=== PATIENT | male | born 1955 | race Caucasian/White ===

== ENCOUNTER 2016-06-09 07:29 | Emergency (ER) | payer SELFPAY ==
[~2016-06-09] VITALS: Ht 175.3 cm; Wt 113.6 kg
[2016-06-09 07:34] VITALS: TEMP 98
[2016-06-09 08:01] LABS: BASO % 0.3 % (0.0-2.0); EOS # 0.3 (0.0-0.7); EOS % 2.3 % (0-4.0); GRAN # 11.2 (1.4-6.5); GRAN % 77.8 % (42.2-75.2); HEMATOCRIT 48.8 % (42.0-52.0); HEMOGLOBIN 16.6 g/dl (13.5-18.0); LYMPH # 1.7 (1.2-3.4); LYMPH % 11.5 % (20.0-51.0); MEAN CELL VOLUME 94 fl (80.0-100.0); MEAN CORPUSCULAR HEMOGLOBIN 32 pg (27.0-31.0); MEAN CORPUSCULAR HGB CONC 34 g/dl (33.0-37.0); MEAN PLATELET VOLUME 9.1 fl (7.4-10.4); MONO # 1.1 (0.1-0.6); MONO % 7.8 % (1.7-9.3); PLATELET COUNT 282 K/mm3 (130-400); RED BLOOD COUNT 5.22 M/mm3 (4.20-5.60); REDCELL DISTRIBUTION WIDTH-CV 12.6 % (11.5-14.5); WHITE BLOOD COUNT 14.4 K/mm3 (4.8-10.8)
[2016-06-09 08:12] LABS: INR 0.9 (0.8-3.0); PROTHROMBIN TIME 10.3 SECONDS (9.7-12.8)
[2016-06-09 08:14] LABS: PARTIAL THROMBOPLASTIN TIME 33.4 SECONDS (26.0-37.0)
[2016-06-09 08:22] LABS: ADJUSTED CALCIUM 9.4 mg/dL (8.4-10.2); ALANINE AMINOTRANSFERASE 46 U/L (21-72); ALBUMIN 4.5 gm/dL (3.5-5.0); ALKALINE PHOSPHATASE 106 U/L (50-136); ANION GAP 13 mmol/L (7-16); BILIRUBIN,TOTAL 1.1 mg/dL (0.0-1.0); BLOOD UREA NITROGEN 16 mg/dL (9-20); CALCIUM 9.8 mg/dL (8.4-10.2); CARBON DIOXIDE 25 mmol/L (22-30); CHLORIDE 99 mmol/L (98-107); CREATININE, serum 0.99 mg/dL (0.66-1.25); GLUCOSE 252 mg/dL (74-106); POTASSIUM 4.9 mmol/L (3.4-5.0); SODIUM 136 mmol/L (137-145); TOTAL PROTEIN 7.5 gm/dL (6.4-8.2)
[2016-06-09 08:39] LABS: TROPONIN-I < 0.012 ng/mL (0.000-0.034)
[2016-06-09 09:45] LABS: B-TYPE NATRIURETIC PEPTIDE 20 pg/mL (0-125)
[2016-06-09 10:30] VITALS: BP 120/81; PULSE 92
[2016-06-09] MEDS ORDERED: TOPROL XL 25MG25 MG PO (10:56)
[2016-06-10] MEDS ORDERED: ALBUTEROL0.83 MG/ML IH (23:43)
[2016-12-08] MEDS ORDERED: ZITHROMAX Z PA250 MG PO (00:17)
[2016-12-08] MEDS ORDERED: FLEXERIL 1010 MG/TAB PO (00:17)
[2016-12-24] MEDS ORDERED: MULTI VITAMINS1 TAB PO (11:13)
[2016-12-25] MEDS ORDERED: COUMADIN 5MG5 MG/TAB PO (11:32)
== END 2016-06-09 10:58 | disposition left against medical advice (07) ==
LOC: COL.ER 07:29 → MEDICAL 09:20
PROVIDERS: Emergency Medicine
DX: R07.9 Chest pain, unspecified (principal); R55 Syncope and collapse; S22.32XA Fracture of one rib, left side, initial encounter for closed fracture; I25.10 Atherosclerotic heart disease of native coronary artery without angina pectoris; F17.210 Nicotine dependence, cigarettes, uncomplicated; I25.2 Old myocardial infarction; Z53.29 Procedure and treatment not carried out because of patient's decision for other reasons; W19.XXXA Unspecified fall, initial encounter; Y92.009 Unspecified place in unspecified non-institutional (private) residence as the place of occurrence of the external cause; J44.9 Chronic obstructive pulmonary disease, unspecified; J45.909 Unspecified asthma, uncomplicated
CPT/HCPCS: J1170; J2270; J2765; J7040

== ENCOUNTER 2016-06-10 19:57 | Observation (INO) | payer SELFPAY ==
[~2016-06-10] VITALS: Ht 175.3 cm; Wt 102.2 kg
[~2016-06-10 19:57] MED LIST: TOPROL XL 25MG25 MG PO
[2016-06-10 20:36] LABS: HEMATOCRIT 43.6 % (42.0-52.0); MEAN CELL VOLUME 93 fl (80.0-100.0); MEAN CORPUSCULAR HEMOGLOBIN 31 pg (27.0-31.0); MEAN CORPUSCULAR HGB CONC 33 g/dl (33.0-37.0); MEAN PLATELET VOLUME 9.1 fl (7.4-10.4); PLATELET COUNT 249 K/mm3 (130-400); RED BLOOD COUNT 4.69 M/mm3 (4.20-5.60); REDCELL DISTRIBUTION WIDTH-CV 12.9 % (11.5-14.5); WHITE BLOOD COUNT 11.9 K/mm3 (4.8-10.8)
[2016-06-10 20:38] LABS: HEMOGLOBIN 14.5 g/dl (13.5-18.0)
[2016-06-10 20:39] LABS: ADD PATHOLOGY DIFF REVIEW NO
[2016-06-10 20:46] LABS: PROTHROMBIN TIME 11.2 SECONDS (9.7-12.8)
[2016-06-10 20:49] LABS: ALANINE AMINOTRANSFERASE 38 U/L (21-72); ALKALINE PHOSPHATASE 95 U/L (50-136); ANION GAP 11 mmol/L (7-16); BILIRUBIN,TOTAL 0.9 mg/dL (0.0-1.0); BLOOD UREA NITROGEN 20 mg/dL (9-20); CARBON DIOXIDE 25 mmol/L (22-30); CHLORIDE 103 mmol/L (98-107); CREATININE, serum 1.06 mg/dL (0.66-1.25); GLUCOSE 122 mg/dL (74-106); LIPASE 72 U/L (23-300); POTASSIUM 4.4 mmol/L (3.4-5.0); SODIUM 138 mmol/L (137-145); TOTAL PROTEIN 7.3 gm/dL (6.4-8.2)
[2016-06-10 21:10] LABS: TROPONIN-I < 0.012 ng/mL (0.000-0.034)
[2016-06-10 21:11] LABS: BAND 8 % (0-10); EOSINOPHIL 3 % (0-4); NEUTROPHILS 59 % (42.0-75.2); PLATELET ESTIMATE NORMAL (NORMAL); TOTAL CELLS COUNTED 100
[2016-06-10 23:19] VITALS: BP 122/85; PULSE 91; TEMP 98.2
[2016-06-10] MEDS ORDERED: ALBUTEROL0.83 MG/ML IH (23:43)
[2016-06-11] VITALS (8 sets, daily range): BP systolic 118–153; BP diastolic 72–90; PULSE 88–119; TEMP 97.5–98.3
[2016-06-11 08:28] LABS: CHOLESTEROL 192 mg/dL (120-200); HDL CHOLESTEROL 54 mg/dL; LDL CHOLESTEROL 123 mg/dL; TRIGLYCERIDE 75 mg/dL
[2016-06-11 08:33] LABS: TROPONIN-I < 0.012 ng/mL (0.000-0.034)
[2016-06-11 20:50] LABS: PH 5 (5-8); SQUAMOUS EPITHELIAL None Seen /hpf; URINE APPEARANCE Clear; URINE BACTERIA None Seen /hpf; URINE BILIRUBIN Negative (NEGATIVE); URINE BLOOD Negative (NEGATIVE); URINE COLOR Yellow; URINE GLUCOSE 3+ (NEGATIVE); URINE KETONE Trace (NEGATIVE); URINE RBC 0-2 /hpf; URINE UROBILINOGEN Negative (NEGATIVE); URINE WBC 0-2 /hpf
[2016-06-12] VITALS (8 sets, daily range): BP systolic 102–148; BP diastolic 76–85; PULSE 87–97; TEMP 97.8–98.5
[2016-06-13 03:04] VITALS: BP 122/81; PULSE 83; TEMP 98
[2016-06-13 07:47] VITALS: BP 125/87; PULSE 92; TEMP 98.3
[2016-06-13] MEDS ORDERED: ZEBETA 5MG5 MG PO (10:48)
[2016-06-13] MEDS ORDERED: PERFOROMIS20 MCG/2 M IH (10:48)
[2016-06-13] MEDS ORDERED: LEVAQUIN 5500 MG/TA1 PO (10:48)
[2016-06-13] MEDS ORDERED: FLOVENT 110MCG7.9 GM IH (10:49)
[2016-06-13] MEDS ORDERED: ASPI325T6 PO (10:49)
[2016-06-13] MEDS ORDERED: PREDNISONE20 MG PO (10:50)
[2016-06-13] MEDS ORDERED: MUCINEX DM 30 M1 TE1 PO (10:51)
[2016-06-13] MEDS ORDERED: PROAIR HFA0.09 MG/AC IH (10:56)
[2016-12-08] MEDS ORDERED: ZITHROMAX Z PA250 MG PO (00:17)
[2016-12-08] MEDS ORDERED: FLEXERIL 1010 MG/TAB PO (00:17)
[2016-12-24] MEDS ORDERED: MULTI VITAMINS1 TAB PO (11:13)
[2016-12-25] MEDS ORDERED: COUMADIN 5MG5 MG/TAB PO (11:32)
== END 2016-06-13 13:28 | disposition home or self-care (01) ==
LOC: COL.ER 19:57 → MEDICAL 22:15
PROVIDERS: Emergency Medicine; Internal Medicine; Nurse Practitioner Family
DX: J44.1 Chronic obstructive pulmonary disease with (acute) exacerbation (principal); R07.9 Chest pain, unspecified; R55 Syncope and collapse; F17.210 Nicotine dependence, cigarettes, uncomplicated
CPT/HCPCS: G0378; J1170; J1650; J1956; J2270; J2405; J2704; J2930; J3475; J7030; J7040; Q9967

== ENCOUNTER 2016-07-02 12:55 | Emergency (ER) | payer SELFPAY ==
[~2016-07-02] VITALS: Ht 175.3 cm; Wt 111.8 kg
[~2016-07-02 12:55] MED LIST changes: +ALBUTEROL0.83 MG/ML IH; +ASPI325T6 PO; +FLOVENT 110MCG7.9 GM IH; +LEVAQUIN 5500 MG/TA1 PO; +MUCINEX DM 30 M1 TE1 PO; +PERFOROMIS20 MCG/2 M IH; +PREDNISONE20 MG PO; +PROAIR HFA0.09 MG/AC IH; +ZEBETA 5MG5 MG PO
[2016-07-02 12:59] VITALS: BP 93/62; TEMP 98
[2016-07-02 13:26] LABS: BASO % 0.3 % (0.0-2.0); EOS # 0.5 (0.0-0.7); EOS % 8.5 % (0-4.0); GRAN # 3.7 (1.4-6.5); GRAN % 62.2 % (42.2-75.2); HEMATOCRIT 44.8 % (42.0-52.0); HEMOGLOBIN 15.1 g/dl (13.5-18.0); LYMPH # 1.1 (1.2-3.4); LYMPH % 18.1 % (20.0-51.0); MEAN CELL VOLUME 94 fl (80.0-100.0); MEAN CORPUSCULAR HEMOGLOBIN 32 pg (27.0-31.0); MEAN CORPUSCULAR HGB CONC 34 g/dl (33.0-37.0); MEAN PLATELET VOLUME 9.1 fl (7.4-10.4); MONO # 0.6 (0.1-0.6); MONO % 10.7 % (1.7-9.3); PLATELET COUNT 220 K/mm3 (130-400); RED BLOOD COUNT 4.79 M/mm3 (4.20-5.60); WHITE BLOOD COUNT 5.9 K/mm3 (4.8-10.8)
[2016-07-02 13:36] LABS: PH 5 (5-8); SQUAMOUS EPITHELIAL 0-2 /hpf; URINE APPEARANCE Hazy; URINE BACTERIA None Seen /hpf; URINE BILIRUBIN Negative (NEGATIVE); URINE BLOOD Negative (NEGATIVE); URINE COLOR Amber; URINE GLUCOSE 3+ (NEGATIVE); URINE KETONE Trace (NEGATIVE); URINE RBC 0-2 /hpf; URINE UROBILINOGEN Negative (NEGATIVE)
[2016-07-02 13:40] LABS: ADJUSTED CALCIUM 9.7 mg/dL (8.4-10.2); ALANINE AMINOTRANSFERASE 54 U/L (21-72); ALKALINE PHOSPHATASE 93 U/L (50-136); ANION GAP 11 mmol/L (7-16); BILIRUBIN,TOTAL 0.7 mg/dL (0.0-1.0); BLOOD UREA NITROGEN 20 mg/dL (9-20); C-REACTIVE PROTEIN 1.9 mg/dL (0.0-0.9); CALCIUM 9.7 mg/dL (8.4-10.2); CARBON DIOXIDE 23 mmol/L (22-30); CHLORIDE 104 mmol/L (98-107); GLUCOSE 206 mg/dL (74-106); POTASSIUM 4.2 mmol/L (3.4-5.0); SODIUM 138 mmol/L (137-145)
[2016-07-02 13:49] LABS: TROPONIN-I < 0.012 ng/mL (0.000-0.034)
[2016-07-02 13:49] LABS: AMPHETAMINE URINE POSITIVE; BARBITURATES URINE NEGATIVE; BENZODIAZEPINES URINE POSITIVE; BUPRENORPHINE URINE NEGATIVE; METHADONE URINE NEGATIVE; OPIATES URINE NEGATIVE; OXYCODONE URINE NEGATIVE; PHENCYCLIDINE URINE NEGATIVE; PROPOXYPHENE URINE NEGATIVE; THC CANNABINOIDS URINE POSITIVE
[2016-07-02] MEDS ORDERED: TUSS PO (15:12)
[2016-07-02] MEDS ORDERED: MEDROL 4MG DOSPA4 MG PO (15:12)
[2016-07-02 15:22] VITALS: PULSE 67
[2016-12-08] MEDS ORDERED: FLEXERIL 1010 MG/TAB PO (00:17)
[2016-12-08] MEDS ORDERED: ZITHROMAX Z PA250 MG PO (00:17)
[2016-12-24] MEDS ORDERED: MULTI VITAMINS1 TAB PO (11:13)
[2016-12-25] MEDS ORDERED: COUMADIN 5MG5 MG/TAB PO (11:32)
== END 2016-07-02 15:23 | disposition home or self-care (01) ==
LOC: COL.ER 12:55
PROVIDERS: Emergency Medicine
DX: J44.1 Chronic obstructive pulmonary disease with (acute) exacerbation (principal)
CPT/HCPCS: J7512

== ENCOUNTER 2016-07-11 20:02 | Emergency (ER) | payer SELFPAY ==
[~2016-07-11] VITALS: Ht 175.3 cm; Wt 109.1 kg
[~2016-07-11 20:02] MED LIST changes: +MEDROL 4MG DOSPA4 MG PO; +TUSS PO
[2016-07-11 20:06] VITALS: TEMP 97.4
[2016-07-11] MEDS ORDERED: PREDNISONE20 MG PO (21:57)
[2016-07-11] MEDS ORDERED: PERCOCET 325 MG1 TA2 PO (21:57)
[2016-07-11 22:17] VITALS: BP 120/86; PULSE 78
[2016-12-08] MEDS ORDERED: ZITHROMAX Z PA250 MG PO (00:17)
[2016-12-08] MEDS ORDERED: FLEXERIL 1010 MG/TAB PO (00:17)
[2016-12-24] MEDS ORDERED: MULTI VITAMINS1 TAB PO (11:13)
[2016-12-25] MEDS ORDERED: COUMADIN 5MG5 MG/TAB PO (11:32)
== END 2016-07-11 22:20 | disposition home or self-care (01) ==
LOC: COL.ER 20:02
DX: S20.212A Contusion of left front wall of thorax, initial encounter (principal); R07.89 Other chest pain; I25.2 Old myocardial infarction; W22.8XXA Striking against or struck by other objects, initial encounter; J44.1 Chronic obstructive pulmonary disease with (acute) exacerbation; Y92.008 Other place in unspecified non-institutional (private) residence as the place of occurrence of the external cause
CPT/HCPCS: A9284; J1170; J2405; J7512

== ENCOUNTER 2016-07-26 14:01 | Emergency (ER) | payer SELFPAY ==
[~2016-07-26] VITALS: Ht 175.3 cm; Wt 113.6 kg
[~2016-07-26 14:01] MED LIST changes: +PERCOCET 325 MG1 TA2 PO
[2016-07-26 14:05] VITALS: BP 121/77; PULSE 82; TEMP 98.1
[2016-07-26] MEDS ORDERED: ULTRAM 50MG TAB50 MG PO (14:23)
[2016-12-08] MEDS ORDERED: FLEXERIL 1010 MG/TAB PO (00:17)
[2016-12-08] MEDS ORDERED: ZITHROMAX Z PA250 MG PO (00:17)
[2016-12-24] MEDS ORDERED: MULTI VITAMINS1 TAB PO (11:13)
[2016-12-25] MEDS ORDERED: COUMADIN 5MG5 MG/TAB PO (11:32)
== END 2016-07-26 14:43 | disposition home or self-care (01) ==
LOC: COL.ER 14:01
DX: M25.511 Pain in right shoulder (principal); I25.10 Atherosclerotic heart disease of native coronary artery without angina pectoris; I25.2 Old myocardial infarction; J44.9 Chronic obstructive pulmonary disease, unspecified; J45.909 Unspecified asthma, uncomplicated; F17.210 Nicotine dependence, cigarettes, uncomplicated

== ENCOUNTER 2016-07-31 13:12 | Observation (INO) | payer SELFPAY ==
[~2016-07-31] VITALS: Ht 175.3 cm; Wt 85.8 kg
[~2016-07-31 13:12] MED LIST changes: +ULTRAM 50MG TAB50 MG PO
[2016-07-31] MEDS ORDERED: ASPIRIN 81M81 MG/TA2 PO (13:31)
[2016-07-31] MEDS ORDERED: RT ALBUTER2.5 MG/0.5 IH (13:32)
[2016-07-31 14:09] LABS: BASO % 0.3 % (0.0-2.0); EOS # 0.7 (0.0-0.7); EOS % 10.4 % (0-4.0); GRAN % 57.6 % (42.2-75.2); HEMATOCRIT 40.5 % (42.0-52.0); HEMOGLOBIN 13.7 g/dl (13.5-18.0); LYMPH # 1.5 (1.2-3.4); LYMPH % 22.2 % (20.0-51.0); MEAN CELL VOLUME 93 fl (80.0-100.0); MEAN CORPUSCULAR HEMOGLOBIN 32 pg (27.0-31.0); MEAN CORPUSCULAR HGB CONC 34 g/dl (33.0-37.0); MEAN PLATELET VOLUME 9.3 fl (7.4-10.4); MONO # 0.6 (0.1-0.6); MONO % 9.2 % (1.7-9.3); PLATELET COUNT 258 K/mm3 (130-400); RED BLOOD COUNT 4.35 M/mm3 (4.20-5.60); REDCELL DISTRIBUTION WIDTH-CV 13.2 % (11.5-14.5); WHITE BLOOD COUNT 6.9 K/mm3 (4.8-10.8)
[2016-07-31 14:17] LABS: ALANINE AMINOTRANSFERASE 48 U/L (21-72); ALBUMIN 4.1 gm/dL (3.5-5.0); ALKALINE PHOSPHATASE 83 U/L (50-136); ANION GAP 9 mmol/L (7-16); BILIRUBIN,TOTAL 0.6 mg/dL (0.0-1.0); BLOOD UREA NITROGEN 8 mg/dL (9-20); CALCIUM 9.1 mg/dL (8.4-10.2); CARBON DIOXIDE 25 mmol/L (22-30); CHLORIDE 105 mmol/L (98-107); CREATININE, serum 0.93 mg/dL (0.66-1.25); GLUCOSE 94 mg/dL (74-106); LIPASE 76 U/L (23-300); POTASSIUM 4.1 mmol/L (3.4-5.0); SODIUM 139 mmol/L (137-145); TOTAL PROTEIN 6.6 gm/dL (6.4-8.2)
[2016-07-31 14:29] LABS: B-TYPE NATRIURETIC PEPTIDE 45 pg/mL (0-125)
[2016-07-31 14:36] LABS: TROPONIN-I < 0.012 ng/mL (0.000-0.034)
[2016-07-31 17:22] VITALS: BP 115/78; PULSE 95; TEMP 97.9
[2016-07-31 19:13] VITALS: BP 134/77; PULSE 90; TEMP 97.5
[2016-08-01] VITALS (12 sets, daily range): BP systolic 112–146; BP diastolic 71–90; PULSE 69–109; TEMP 97.4–98.4
[2016-08-01 06:29] LABS: ARTERIAL BLD GAS O2 SATURATION 95.2 % (92-100); ARTERIAL BLD GAS TCO2 CT 27.4; ARTERIAL BLOOD GAS BASE EXCESS -0.2 (-2-2); ARTERIAL BLOOD GAS PHT 7.35 C (7.35-7.45); ARTERIAL BLOOD GAS PO2 82.3 mmHg (80-100); ARTERIAL BLOOD GAS PO2T 82.3 (80-100); ARTERIAL BLOOD GAS pH 7.35 (7.35-7.45); OXYHEMOGLOBIN 94.4 %
[2016-08-01 06:30] LABS: ALLEN TEST YES; ALLENS TEST RESULT PASS; ATS? YES
[2016-08-02] VITALS (14 sets, daily range): BP systolic 116–1130; BP diastolic 68–98; PULSE 84–98; TEMP 97.4–98
[2016-08-02 07:37] LABS: MEAN CELL VOLUME 93 fl (80.0-100.0); MEAN CORPUSCULAR HEMOGLOBIN 31 pg (27.0-31.0); MEAN CORPUSCULAR HGB CONC 33 g/dl (33.0-37.0); MEAN PLATELET VOLUME 9.2 fl (7.4-10.4); PLATELET COUNT 249 K/mm3 (130-400); REDCELL DISTRIBUTION WIDTH-CV 12.8 % (11.5-14.5); WHITE BLOOD COUNT 15.1 K/mm3 (4.8-10.8)
[2016-08-02 07:44] LABS: PROTHROMBIN TIME 10.6 SECONDS (9.7-12.8)
[2016-08-02 07:48] LABS: CALCIUM 9.6 mg/dL (8.4-10.2); CREATININE, serum 0.89 mg/dL (0.66-1.25); POTASSIUM 4.4 mmol/L (3.4-5.0)
[2016-08-02 08:02] LABS: ADD PATHOLOGY DIFF REVIEW NO
[2016-08-02 09:40] LABS: BAND 9 % (0-10); NEUTROPHILS 84 % (42.0-75.2); PLATELET ESTIMATE NORMAL (NORMAL); TOTAL CELLS COUNTED 100
[2016-08-02] MEDS ORDERED: ZITHROMAX500 M2 PO (14:54)
[2016-08-02] MEDS ORDERED: RT SPIRIVA18 MCG IH (14:54)
[2016-08-02] MEDS ORDERED: LIPITOR20 MG PO (14:55)
[2016-08-02] MEDS ORDERED: PROAIR HFA0.09 MG/AC IH (14:55)
[2016-08-02] MEDS ORDERED: ASPIRIN 81M81 MG/TA2 PO (14:56)
[2016-08-02] MEDS ORDERED: ULTRAM 50MG TAB50 MG PO (14:56)
[2016-08-02] MEDS ORDERED: MUCINEX DM 30 M1 TE1 PO (14:56)
[2016-08-02] MEDS ORDERED: RT ADVAIR 228 DISKUS IH (14:57)
[2016-08-02] MEDS ORDERED: PREDNISONE20 MG PO (14:59)
[2016-12-08] MEDS ORDERED: FLEXERIL 1010 MG/TAB PO (00:17)
[2016-12-08] MEDS ORDERED: ZITHROMAX Z PA250 MG PO (00:17)
[2016-12-24] MEDS ORDERED: MULTI VITAMINS1 TAB PO (11:13)
[2016-12-25] MEDS ORDERED: COUMADIN 5MG5 MG/TAB PO (11:32)
== END 2016-08-02 16:15 | disposition home or self-care (01) ==
LOC: COL.ER 13:12 → MEDICAL 16:26
PROVIDERS: Emergency Medicine; Family Medicine; Internal Medicine Cardiovascular Disease; Physician Assistant
DX: R07.89 Other chest pain (principal); K21.9 Gastro-esophageal reflux disease without esophagitis; J44.1 Chronic obstructive pulmonary disease with (acute) exacerbation; I50.9 Heart failure, unspecified; D72.829 Elevated white blood cell count, unspecified; M25.511 Pain in right shoulder; W17.89XA Other fall from one level to another, initial encounter; Y92.79 Other farm location as the place of occurrence of the external cause; Z87.891 Personal history of nicotine dependence; I25.2 Old myocardial infarction; R07.9 Chest pain, unspecified
CPT/HCPCS: 99232-AI; 99239; A9502; C1760; G0378; J0456; J1170; J1650; J1885; J2250; J2270; J2785; J2930; J3010; J7030; J7050; J7512; Q9967

== ENCOUNTER 2016-08-30 02:17 | Emergency (ER) | payer SELFPAY ==
[~2016-08-30] VITALS: Ht 175.3 cm; Wt 113.6 kg
[~2016-08-30 02:17] MED LIST changes: +ASPIRIN 81M81 MG/TA2 PO; +LIPITOR20 MG PO; +RT ADVAIR 228 DISKUS IH; +RT ALBUTER2.5 MG/0.5 IH; +RT SPIRIVA18 MCG IH; +ZITHROMAX500 M2 PO
[2016-08-30 02:20] VITALS: TEMP 97.9
[2016-08-30 03:14] LABS: BASO % 0.3 % (0.0-2.0); EOS # 0.4 (0.0-0.7); EOS % 5.1 % (0-4.0); GRAN % 55.8 % (42.2-75.2); HEMATOCRIT 39.7 % (42.0-52.0); HEMOGLOBIN 13.2 g/dl (13.5-18.0); LYMPH # 2.1 (1.2-3.4); LYMPH % 29.1 % (20.0-51.0); MEAN CELL VOLUME 95 fl (80.0-100.0); MEAN CORPUSCULAR HEMOGLOBIN 32 pg (27.0-31.0); MEAN CORPUSCULAR HGB CONC 33 g/dl (33.0-37.0); MEAN PLATELET VOLUME 8.8 fl (7.4-10.4); MONO # 0.7 (0.1-0.6); MONO % 9.3 % (1.7-9.3); PLATELET COUNT 217 K/mm3 (130-400); RED BLOOD COUNT 4.18 M/mm3 (4.20-5.60); REDCELL DISTRIBUTION WIDTH-CV 13.4 % (11.5-14.5); WHITE BLOOD COUNT 7.1 K/mm3 (4.8-10.8)
[2016-08-30 03:27] LABS: ADJUSTED CALCIUM 8.8 mg/dL (8.4-10.2); ALANINE AMINOTRANSFERASE 50 U/L (21-72); ALBUMIN 3.8 gm/dL (3.5-5.0); ALKALINE PHOSPHATASE 91 U/L (50-136); ANION GAP 11 mmol/L (7-16); BILIRUBIN,TOTAL 0.5 mg/dL (0.0-1.0); BLOOD UREA NITROGEN 18 mg/dL (9-20); CALCIUM 8.6 mg/dL (8.4-10.2); CARBON DIOXIDE 24 mmol/L (22-30); CHLORIDE 103 mmol/L (98-107); CREATININE, serum 0.86 mg/dL (0.66-1.25); GLUCOSE 208 mg/dL (74-106); POTASSIUM 3.9 mmol/L (3.4-5.0); SODIUM 138 mmol/L (137-145)
[2016-08-30 03:38] LABS: B-TYPE NATRIURETIC PEPTIDE 29 pg/mL (0-125)
[2016-08-30 03:41] LABS: LIPASE 102 U/L (23-300)
[2016-08-30 03:50] LABS: TROPONIN-I < 0.012 ng/mL (0.000-0.034)
[2016-08-30] MEDS ORDERED: DOXYCYCLINE 10100 MG PO (04:52)
[2016-08-30] MEDS ORDERED: PHENERGAN W/CO120 M1 PO (04:52)
[2016-08-30] MEDS ORDERED: PREDNISONE10 MG PO ×2 (04:55→05:28)
[2016-08-30 05:25] VITALS: BP 121/92; PULSE 78
[2016-08-30] MEDS ORDERED: MUCINEX DM 30 M1 TE1 (05:30)
[2016-12-08] MEDS ORDERED: FLEXERIL 1010 MG/TAB PO (00:17)
[2016-12-08] MEDS ORDERED: ZITHROMAX Z PA250 MG PO (00:17)
[2016-12-24] MEDS ORDERED: MULTI VITAMINS1 TAB PO (11:13)
[2016-12-25] MEDS ORDERED: COUMADIN 5MG5 MG/TAB PO (11:32)
== END 2016-08-30 05:34 | disposition home or self-care (01) ==
LOC: COL.ER 02:17
PROVIDERS: Emergency Medicine
DX: J44.9 Chronic obstructive pulmonary disease, unspecified (principal); I10 Essential (primary) hypertension; I25.10 Atherosclerotic heart disease of native coronary artery without angina pectoris; I25.2 Old myocardial infarction; Z87.891 Personal history of nicotine dependence; Z95.5 Presence of coronary angioplasty implant and graft; Z79.82 Long term (current) use of aspirin
CPT/HCPCS: J1170; J7030; J7512

== ENCOUNTER 2016-09-22 02:45 | Emergency (ER) | payer SELFPAY ==
[~2016-09-22] VITALS: Ht 175.3 cm; Wt 120.5 kg
[~2016-09-22 02:45] MED LIST changes: +DOXYCYCLINE 10100 MG PO; +MUCINEX DM 30 M1 TE1; +PHENERGAN W/CO120 M1 PO; +PREDNISONE10 MG PO
[2016-09-22 02:58] VITALS: TEMP 98
[2016-09-22 03:07] LABS: BASO % 0.2 % (0.0-2.0); EOS # 0.1 (0.0-0.7); GRAN # 6.8 (1.4-6.5); GRAN % 69.9 % (42.2-75.2); HEMATOCRIT 41.5 % (42.0-52.0); HEMOGLOBIN 13.9 g/dl (13.5-18.0); LYMPH # 1.8 (1.2-3.4); LYMPH % 18.5 % (20.0-51.0); MEAN CELL VOLUME 95 fl (80.0-100.0); MEAN CORPUSCULAR HEMOGLOBIN 32 pg (27.0-31.0); MEAN CORPUSCULAR HGB CONC 34 g/dl (33.0-37.0); MEAN PLATELET VOLUME 9.3 fl (7.4-10.4); MONO % 9.9 % (1.7-9.3); PLATELET COUNT 222 K/mm3 (130-400); RED BLOOD COUNT 4.38 M/mm3 (4.20-5.60); REDCELL DISTRIBUTION WIDTH-CV 13.4 % (11.5-14.5); WHITE BLOOD COUNT 9.7 K/mm3 (4.8-10.8)
[2016-09-22 03:17] LABS: ADJUSTED CALCIUM 8.9 mg/dL (8.4-10.2); ALANINE AMINOTRANSFERASE 103 U/L (21-72); ALBUMIN 3.9 gm/dL (3.5-5.0); ALKALINE PHOSPHATASE 118 U/L (50-136); ANION GAP 11 mmol/L (7-16); BILIRUBIN,TOTAL 0.6 mg/dL (0.0-1.0); BLOOD UREA NITROGEN 17 mg/dL (9-20); CALCIUM 8.8 mg/dL (8.4-10.2); CARBON DIOXIDE 23 mmol/L (22-30); CHLORIDE 103 mmol/L (98-107); CREATININE, serum 1.07 mg/dL (0.66-1.25); GLUCOSE 190 mg/dL (74-106); POTASSIUM 3.9 mmol/L (3.4-5.0); SODIUM 138 mmol/L (137-145); TOTAL PROTEIN 6.1 gm/dL (6.4-8.2)
[2016-09-22 03:32] LABS: TROPONIN-I < 0.012 ng/mL (0.000-0.034)
[2016-09-22] MEDS ORDERED: MEDROL 4MG DOSPA4 MG PO (04:01)
[2016-09-22 04:08] VITALS: BP 126/85; PULSE 84
[2016-09-22] MEDS ORDERED: ZITHROMAX Z PA250 MG PO (04:09)
[2016-12-08] MEDS ORDERED: FLEXERIL 1010 MG/TAB PO (00:17)
[2016-12-08] MEDS ORDERED: ZITHROMAX Z PA250 MG PO (00:17)
[2016-12-24] MEDS ORDERED: MULTI VITAMINS1 TAB PO (11:13)
[2016-12-25] MEDS ORDERED: COUMADIN 5MG5 MG/TAB PO (11:32)
== END 2016-09-22 04:46 | disposition home or self-care (01) ==
LOC: COL.ER 02:45
PROVIDERS: Emergency Medicine
DX: J44.1 Chronic obstructive pulmonary disease with (acute) exacerbation (principal); R07.89 Other chest pain; I25.2 Old myocardial infarction
CPT/HCPCS: J1885; J2270; J7030; J7512

== ENCOUNTER 2016-09-28 19:39 | Emergency (ER) | payer SELFPAY ==
[~2016-09-28] VITALS: Ht 175.3 cm; Wt 115.9 kg
[~2016-09-28 19:39] MED LIST changes: +ZITHROMAX Z PA250 MG PO
[2016-09-28 19:42] VITALS: TEMP 98.1
[2016-09-28 20:37] LABS: BASO % 0.3 % (0.0-2.0); EOS # 0.1 (0.0-0.7); EOS % 0.7 % (0-4.0); GRAN # 8.3 (1.4-6.5); GRAN % 80.4 % (42.2-75.2); HEMATOCRIT 48.1 % (42.0-52.0); HEMOGLOBIN 16.3 g/dl (13.5-18.0); LYMPH # 1.2 (1.2-3.4); LYMPH % 12.1 % (20.0-51.0); MEAN CELL VOLUME 93 fl (80.0-100.0); MEAN CORPUSCULAR HEMOGLOBIN 32 pg (27.0-31.0); MEAN CORPUSCULAR HGB CONC 34 g/dl (33.0-37.0); MEAN PLATELET VOLUME 9.3 fl (7.4-10.4); MONO # 0.6 (0.1-0.6); MONO % 6.2 % (1.7-9.3); PLATELET COUNT 251 K/mm3 (130-400); RED BLOOD COUNT 5.16 M/mm3 (4.20-5.60); REDCELL DISTRIBUTION WIDTH-CV 13.1 % (11.5-14.5); WHITE BLOOD COUNT 10.3 K/mm3 (4.8-10.8)
[2016-09-28 20:41] LABS: INR 0.9 (0.8-3.0); PROTHROMBIN TIME 10.1 SECONDS (9.7-12.8)
[2016-09-28 20:44] LABS: PARTIAL THROMBOPLASTIN TIME 29.9 SECONDS (26.0-37.0)
[2016-09-28 20:47] LABS: ADJUSTED CALCIUM 9.3 mg/dL (8.4-10.2); ALANINE AMINOTRANSFERASE 161 U/L (21-72); ALBUMIN 4.2 gm/dL (3.5-5.0); ALKALINE PHOSPHATASE 83 U/L (50-136); ANION GAP 9 mmol/L (7-16); BILIRUBIN,TOTAL 0.9 mg/dL (0.0-1.0); BLOOD UREA NITROGEN 18 mg/dL (9-20); CALCIUM 9.5 mg/dL (8.4-10.2); CARBON DIOXIDE 22 mmol/L (22-30); CHLORIDE 103 mmol/L (98-107); CREATININE, serum 0.83 mg/dL (0.66-1.25); GLUCOSE 197 mg/dL (74-106); POTASSIUM 4.5 mmol/L (3.4-5.0); SODIUM 135 mmol/L (137-145)
[2016-09-28 20:59] LABS: TROPONIN-I < 0.012 ng/mL (0.000-0.034)
[2016-09-28 23:13] VITALS: BP 134/90; PULSE 74
[2016-12-08] MEDS ORDERED: ZITHROMAX Z PA250 MG PO (00:17)
[2016-12-08] MEDS ORDERED: FLEXERIL 1010 MG/TAB PO (00:17)
[2016-12-24] MEDS ORDERED: MULTI VITAMINS1 TAB PO (11:13)
[2016-12-25] MEDS ORDERED: COUMADIN 5MG5 MG/TAB PO (11:32)
== END 2016-09-28 23:16 | disposition home or self-care (01) ==
LOC: COL.ER 19:39
PROVIDERS: Emergency Medicine
DX: R07.89 Other chest pain (principal); R06.02 Shortness of breath; F17.210 Nicotine dependence, cigarettes, uncomplicated; I25.2 Old myocardial infarction; J45.909 Unspecified asthma, uncomplicated; J44.9 Chronic obstructive pulmonary disease, unspecified; I25.10 Atherosclerotic heart disease of native coronary artery without angina pectoris; Z95.5 Presence of coronary angioplasty implant and graft
CPT/HCPCS: J1885; J2270; J2930

== ENCOUNTER 2016-10-01 20:28 | Emergency (ER) | payer SELFPAY ==
[~2016-10-01] VITALS: Ht 175.3 cm; Wt 115.9 kg
[~2016-10-01 20:28] MED LIST changes: +ASPIRIN 81M81 MG/TA2; +FLOVENT DI50 MCG/Act; +MONODOX100 PO; +NORCO 325 MG-51 TAB PO; +NORCO 325 MG-7.1 TAB PO; +NORCOELIX PO; +PROVENTIL0.09 MG/A1 IH; +VITAMIN B PO; +VITAMIN B1225 MCG PO; +[UNRECOGNIZED DRUG - OTHER]
[2016-10-01 20:31] VITALS: TEMP 99
[2016-10-01 21:30] VITALS: BP 98/65; PULSE 99
[2016-12-08] MEDS ORDERED: FLEXERIL 1010 MG/TAB PO (00:17)
[2016-12-08] MEDS ORDERED: ZITHROMAX Z PA250 MG PO (00:17)
[2016-12-24] MEDS ORDERED: MULTI VITAMINS1 TAB PO (11:13)
[2016-12-25] MEDS ORDERED: COUMADIN 5MG5 MG/TAB PO (11:32)
[2017-01-07] MEDS ORDERED: COUMADIN 5MG5 MG/TAB PO (08:22)
== END 2016-10-01 22:06 | disposition home or self-care (01) ==
LOC: COL.ER 20:28 → EDBD 20:37 → COL.ER 20:37
DX: R07.89 Other chest pain (principal); I10 Essential (primary) hypertension; F17.200 Nicotine dependence, unspecified, uncomplicated; J44.9 Chronic obstructive pulmonary disease, unspecified; J45.909 Unspecified asthma, uncomplicated; I25.10 Atherosclerotic heart disease of native coronary artery without angina pectoris

== ENCOUNTER 2016-10-20 08:16 | Emergency (ER) | payer SELFPAY ==
[~2016-10-20] VITALS: Ht 175.3 cm; Wt 118.2 kg
[~2016-10-20 08:16] MED LIST changes: -ASPIRIN 81M81 MG/TA2; -FLOVENT DI50 MCG/Act; -MONODOX100 PO; -NORCO 325 MG-51 TAB PO; -NORCO 325 MG-7.1 TAB PO; -NORCOELIX PO; -PROVENTIL0.09 MG/A1 IH; -VITAMIN B PO; -VITAMIN B1225 MCG PO; -[UNRECOGNIZED DRUG - OTHER]
[2016-10-20 08:19] VITALS: BP 129/78; TEMP 98
[2016-10-20] MEDS ORDERED: CEPHALEXIN500 M1 PO (09:03)
[2016-10-20] MEDS ORDERED: BACTRIM DS 8001 TAB PO (09:03)
[2016-10-20 09:17] VITALS: PULSE 84
[2016-10-20] MEDS ORDERED: NITROSTAT0.3 MG SL (23:07)
[2016-12-08] MEDS ORDERED: FLEXERIL 1010 MG/TAB PO (00:17)
[2016-12-08] MEDS ORDERED: ZITHROMAX Z PA250 MG PO (00:17)
[2016-12-24] MEDS ORDERED: MULTI VITAMINS1 TAB PO (11:13)
[2016-12-25] MEDS ORDERED: COUMADIN 5MG5 MG/TAB PO (11:32)
== END 2016-10-20 09:17 | disposition home or self-care (01) ==
LOC: COL.ER 08:16
DX: L02.11 Cutaneous abscess of neck (principal); R21 Rash and other nonspecific skin eruption; J44.9 Chronic obstructive pulmonary disease, unspecified; F32.9 Major depressive disorder, single episode, unspecified; F17.200 Nicotine dependence, unspecified, uncomplicated; Z23 Encounter for immunization; Z87.39 Personal history of other diseases of the musculoskeletal system and connective tissue; Z79.82 Long term (current) use of aspirin; Z98.890 Other specified postprocedural states

== ENCOUNTER 2016-10-20 22:44 | Emergency (ER) | payer SELFPAY ==
[~2016-10-20] VITALS: Ht 175.3 cm; Wt 120.5 kg
[~2016-10-20 22:44] MED LIST changes: +BACTRIM DS 8001 TAB PO; +CEPHALEXIN500 M1 PO
[2016-10-20 22:50] VITALS: TEMP 99
[2016-10-20] MEDS ORDERED: NITROSTAT0.3 MG SL (23:07)
[2016-10-20 23:39] LABS: BASO % 0.3 % (0.0-2.0); EOS # 0.3 (0.0-0.7); EOS % 4.1 % (0-4.0); GRAN # 4.3 (1.4-6.5); GRAN % 62.4 % (42.2-75.2); HEMATOCRIT 38.7 % (42.0-52.0); LYMPH # 1.3 (1.2-3.4); LYMPH % 18.7 % (20.0-51.0); MEAN CELL VOLUME 94 fl (80.0-100.0); MEAN CORPUSCULAR HEMOGLOBIN 32 pg (27.0-31.0); MEAN CORPUSCULAR HGB CONC 34 g/dl (33.0-37.0); MEAN PLATELET VOLUME 9.3 fl (7.4-10.4); MONO % 14.2 % (1.7-9.3); PLATELET COUNT 211 K/mm3 (130-400); REDCELL DISTRIBUTION WIDTH-CV 13.2 % (11.5-14.5); WHITE BLOOD COUNT 6.8 K/mm3 (4.8-10.8)
[2016-10-20 23:49] LABS: ADJUSTED CALCIUM 9.3 mg/dL (8.4-10.2); ALANINE AMINOTRANSFERASE 305 U/L (21-72); ALBUMIN 3.5 gm/dL (3.5-5.0); ALKALINE PHOSPHATASE 88 U/L (50-136); ANION GAP 7 mmol/L (7-16); BILIRUBIN,TOTAL 0.9 mg/dL (0.0-1.0); BLOOD UREA NITROGEN 13 mg/dL (9-20); CALCIUM 8.9 mg/dL (8.4-10.2); CARBON DIOXIDE 24 mmol/L (22-30); CHLORIDE 105 mmol/L (98-107); CREATININE, serum 0.88 mg/dL (0.66-1.25); GLUCOSE 129 mg/dL (74-106); LIPASE 73 U/L (23-300); POTASSIUM 3.8 mmol/L (3.4-5.0); SODIUM 136 mmol/L (137-145)
[2016-10-21 00:01] LABS: TROPONIN-I < 0.012 ng/mL (0.000-0.034)
[2016-10-21 00:36] VITALS: BP 108/85; PULSE 86
[2016-12-08] MEDS ORDERED: FLEXERIL 1010 MG/TAB PO (00:17)
[2016-12-08] MEDS ORDERED: ZITHROMAX Z PA250 MG PO (00:17)
[2016-12-24] MEDS ORDERED: MULTI VITAMINS1 TAB PO (11:13)
[2016-12-25] MEDS ORDERED: COUMADIN 5MG5 MG/TAB PO (11:32)
== END 2016-10-21 01:15 | disposition home or self-care (01) ==
LOC: COL.ER 22:44
PROVIDERS: Emergency Medicine
DX: L03.221 Cellulitis of neck (principal); R07.89 Other chest pain; I10 Essential (primary) hypertension; I25.10 Atherosclerotic heart disease of native coronary artery without angina pectoris; J44.9 Chronic obstructive pulmonary disease, unspecified; Z95.9 Presence of cardiac and vascular implant and graft, unspecified; Z79.82 Long term (current) use of aspirin

== ENCOUNTER 2016-10-22 12:19 | Emergency (ER) | payer SELFPAY ==
[~2016-10-22] VITALS: Ht 175.3 cm; Wt 120.5 kg
[~2016-10-22 12:19] MED LIST changes: +NITROSTAT0.3 MG SL
[2016-10-22 12:21] VITALS: BP 136/72; PULSE 96; TEMP 98.5
[2016-12-08] MEDS ORDERED: FLEXERIL 1010 MG/TAB PO (00:17)
[2016-12-08] MEDS ORDERED: ZITHROMAX Z PA250 MG PO (00:17)
[2016-12-24] MEDS ORDERED: MULTI VITAMINS1 TAB PO (11:13)
[2016-12-25] MEDS ORDERED: COUMADIN 5MG5 MG/TAB PO (11:32)
== END 2016-10-22 14:11 | disposition home or self-care (01) ==
LOC: COL.ER 12:19
DX: L02.11 Cutaneous abscess of neck (principal); L02.211 Cutaneous abscess of abdominal wall; L03.311 Cellulitis of abdominal wall

== ENCOUNTER 2016-10-27 16:24 | Emergency (ER) | payer SELFPAY ==
[~2016-10-27] VITALS: Ht 175.3 cm; Wt 120.5 kg
[2016-10-27 16:26] VITALS: BP 153/85; TEMP 98.3
[2016-10-27 18:02] VITALS: PULSE 88
[2016-12-08] MEDS ORDERED: FLEXERIL 1010 MG/TAB PO (00:17)
[2016-12-08] MEDS ORDERED: ZITHROMAX Z PA250 MG PO (00:17)
[2016-12-24] MEDS ORDERED: MULTI VITAMINS1 TAB PO (11:13)
[2016-12-25] MEDS ORDERED: COUMADIN 5MG5 MG/TAB PO (11:32)
== END 2016-10-27 18:02 | disposition home or self-care (01) ==
LOC: COL.ER 16:24
DX: L02.415 Cutaneous abscess of right lower limb (principal); L03.116 Cellulitis of left lower limb; L03.115 Cellulitis of right lower limb; L03.311 Cellulitis of abdominal wall; L02.211 Cutaneous abscess of abdominal wall; L03.221 Cellulitis of neck; L02.11 Cutaneous abscess of neck; L73.9 Follicular disorder, unspecified; B95.62 Methicillin resistant Staphylococcus aureus infection as the cause of diseases classified elsewhere; I10 Essential (primary) hypertension; T36.96XA Underdosing of unspecified systemic antibiotic, initial encounter; Z91.120 Patient's intentional underdosing of medication regimen due to financial hardship

== ENCOUNTER 2016-10-31 15:35 | Emergency (ER) | payer SELFPAY ==
[~2016-10-31] VITALS: Ht 175.3 cm; Wt 120.5 kg
[2016-10-31 15:37] VITALS: BP 113/79; PULSE 94; TEMP 98.7
[2016-12-08] MEDS ORDERED: ZITHROMAX Z PA250 MG PO (00:17)
[2016-12-08] MEDS ORDERED: FLEXERIL 1010 MG/TAB PO (00:17)
[2016-12-24] MEDS ORDERED: MULTI VITAMINS1 TAB PO (11:13)
[2016-12-25] MEDS ORDERED: COUMADIN 5MG5 MG/TAB PO (11:32)
== END 2016-10-31 16:39 | disposition home or self-care (01) ==
LOC: COL.ER 15:35
DX: L02.211 Cutaneous abscess of abdominal wall (principal); L03.311 Cellulitis of abdominal wall; J44.9 Chronic obstructive pulmonary disease, unspecified; Z79.82 Long term (current) use of aspirin

== ENCOUNTER 2016-11-10 12:42 | Emergency (ER) | payer SELFPAY ==
[~2016-11-10] VITALS: Ht 175.3 cm; Wt 120.5 kg
[2016-11-10 12:47] VITALS: TEMP 97.6
[2016-11-10 13:14] LABS: BASO % 0.3 % (0.0-2.0); EOS # 0.2 (0.0-0.7); EOS % 3.2 % (0-4.0); GRAN # 3.7 (1.4-6.5); GRAN % 62.7 % (42.2-75.2); HEMATOCRIT 45.1 % (42.0-52.0); HEMOGLOBIN 15.1 g/dl (13.5-18.0); LYMPH # 1.3 (1.2-3.4); LYMPH % 22.1 % (20.0-51.0); MEAN CELL VOLUME 95 fl (80.0-100.0); MEAN CORPUSCULAR HEMOGLOBIN 32 pg (27.0-31.0); MEAN CORPUSCULAR HGB CONC 34 g/dl (33.0-37.0); MEAN PLATELET VOLUME 9.3 fl (7.4-10.4); MONO # 0.7 (0.1-0.6); MONO % 11.5 % (1.7-9.3); PLATELET COUNT 271 K/mm3 (130-400); RED BLOOD COUNT 4.74 M/mm3 (4.20-5.60); REDCELL DISTRIBUTION WIDTH-CV 12.8 % (11.5-14.5); WHITE BLOOD COUNT 5.9 K/mm3 (4.8-10.8)
[2016-11-10 13:23] LABS: ADJUSTED CALCIUM 9.3 mg/dL (8.4-10.2); ALANINE AMINOTRANSFERASE 365 U/L (21-72); ALBUMIN 4.1 gm/dL (3.5-5.0); ALKALINE PHOSPHATASE 105 U/L (50-136); ANION GAP 7 mmol/L (7-16); BILIRUBIN,TOTAL 0.5 mg/dL (0.0-1.0); BLOOD UREA NITROGEN 17 mg/dL (9-20); CALCIUM 9.4 mg/dL (8.4-10.2); CARBON DIOXIDE 24 mmol/L (22-30); CHLORIDE 105 mmol/L (98-107); CREATININE, serum 0.84 mg/dL (0.66-1.25); GLUCOSE 151 mg/dL (74-106); LIPASE 96 U/L (23-300); POTASSIUM 4.7 mmol/L (3.4-5.0); SODIUM 136 mmol/L (137-145); TOTAL PROTEIN 6.8 gm/dL (6.4-8.2)
[2016-11-10 13:34] LABS: B-TYPE NATRIURETIC PEPTIDE 29 pg/mL (0-125); TROPONIN-I < 0.012 ng/mL (0.000-0.034)
[2016-11-10] MEDS ORDERED: PROVENTIL0.09 MG/A1 IH (14:50)
[2016-11-10] MEDS ORDERED: NORCO 325 MG-51 TAB PO (14:50)
[2016-11-10] MEDS ORDERED: PREDNISONE20 MG PO (14:50)
[2016-11-10] MEDS ORDERED: LEVAQUIN 5500 MG/TA1 PO (14:50)
[2016-11-10 15:15] VITALS: BP 108/72; PULSE 89
[2016-12-08] MEDS ORDERED: ZITHROMAX Z PA250 MG PO (00:17)
[2016-12-08] MEDS ORDERED: FLEXERIL 1010 MG/TAB PO (00:17)
[2016-12-24] MEDS ORDERED: MULTI VITAMINS1 TAB PO (11:13)
[2016-12-25] MEDS ORDERED: COUMADIN 5MG5 MG/TAB PO (11:32)
== END 2016-11-10 15:30 | disposition home or self-care (01) ==
LOC: COL.ER 12:42
PROVIDERS: Emergency Medicine
DX: J18.1 Lobar pneumonia, unspecified organism (principal); J44.9 Chronic obstructive pulmonary disease, unspecified; R09.1 Pleurisy; I25.2 Old myocardial infarction; Z87.891 Personal history of nicotine dependence; Z79.82 Long term (current) use of aspirin; Z95.9 Presence of cardiac and vascular implant and graft, unspecified
CPT/HCPCS: J7512

== ENCOUNTER 2016-11-12 15:10 | Inpatient (IN) | payer SELFPAY ==
[~2016-11-12] VITALS: Ht 175.3 cm; Wt 106.5 kg
[~2016-11-12 15:10] MED LIST changes: +NORCO 325 MG-51 TAB PO; +PROVENTIL0.09 MG/A1 IH
[2016-11-12 16:10] LABS: BASO % 0.5 % (0.0-2.0); EOS # 0.2 (0.0-0.7); EOS % 3.8 % (0-4.0); GRAN # 3.3 (1.4-6.5); GRAN % 56.2 % (42.2-75.2); HEMATOCRIT 45.8 % (42.0-52.0); LYMPH # 1.7 (1.2-3.4); LYMPH % 28.5 % (20.0-51.0); MEAN CELL VOLUME 96 fl (80.0-100.0); MEAN CORPUSCULAR HEMOGLOBIN 31 pg (27.0-31.0); MEAN CORPUSCULAR HGB CONC 33 g/dl (33.0-37.0); MEAN PLATELET VOLUME 9.2 fl (7.4-10.4); MONO # 0.6 (0.1-0.6); MONO % 10.7 % (1.7-9.3); PLATELET COUNT 259 K/mm3 (130-400); RED BLOOD COUNT 4.77 M/mm3 (4.20-5.60); REDCELL DISTRIBUTION WIDTH-CV 13.1 % (11.5-14.5); WHITE BLOOD COUNT 5.8 K/mm3 (4.8-10.8)
[2016-11-12 16:17] LABS: INR 1.2 (0.8-3.0); PROTHROMBIN TIME 13.3 SECONDS (9.7-12.8)
[2016-11-12 16:20] LABS: PARTIAL THROMBOPLASTIN TIME 30.8 SECONDS (26.0-37.0)
[2016-11-12 16:36] LABS: ADJUSTED CALCIUM 6.4 mg/dL (8.4-10.2); ALANINE AMINOTRANSFERASE 187 U/L (21-72); ALBUMIN 1.6 gm/dL (3.5-5.0); ALKALINE PHOSPHATASE 51 U/L (50-136); ANION GAP 2 mmol/L (7-16); BILIRUBIN,TOTAL 0.1 mg/dL (0.0-1.0); BLOOD UREA NITROGEN 12 mg/dL (9-20); CARBON DIOXIDE 15 mmol/L (22-30); CHLORIDE 121 mmol/L (98-107); CREATININE, serum 0.48 mg/dL (0.66-1.25); GLUCOSE 138 mg/dL (74-106); SODIUM 139 mmol/L (137-145); TOTAL PROTEIN 3.3 gm/dL (6.4-8.2)
[2016-11-12 16:44] LABS: POTASSIUM 2.3 mmol/L (3.4-5.0)
[2016-11-12 16:45] LABS: TROPONIN-I < 0.012 ng/mL (0.000-0.034)
[2016-11-12 16:59] LABS: CALCIUM 4.5 mg/dL (8.4-10.2)
[2016-11-12 18:01] LABS: CALCIUM 8.2 mg/dL (8.4-10.2); CREATININE, serum 0.79 mg/dL (0.66-1.25)
[2016-11-12 20:56] VITALS: BP 123/85; PULSE 117; TEMP 97.1
[2016-11-12] MEDS ORDERED: NITROSTAT0.4 MG/TAB SL (21:21)
[2016-11-12 21:49] LABS: MAGNESIUM 1.8 mg/dL (1.6-2.3)
[2016-11-13] VITALS: BP 112/81; PULSE 64; TEMP 97.8
[2016-11-13 00:26] LABS: PH 5 (5-8); SQUAMOUS EPITHELIAL None Seen /hpf; URINE APPEARANCE Clear; URINE BACTERIA None Seen /hpf; URINE BILIRUBIN Negative (NEGATIVE); URINE BLOOD Negative (NEGATIVE); URINE COLOR Yellow; URINE GLUCOSE 3+ (NEGATIVE); URINE KETONE Negative (NEGATIVE); URINE RBC 0-2 /hpf; URINE UROBILINOGEN Negative (NEGATIVE); URINE WBC 0-2 /hpf
[2016-11-13 03:00] VITALS: BP 91/63; PULSE 59
[2016-11-13 03:30] VITALS: BP 88/58; PULSE 55
[2016-11-13 04:00] VITALS: BP 108/69; PULSE 64; TEMP 98.1
[2016-11-13 06:38] LABS: HEMATOCRIT 43.9 % (42.0-52.0); HEMOGLOBIN 14.8 g/dl (13.5-18.0); MEAN CELL VOLUME 95 fl (80.0-100.0); MEAN CORPUSCULAR HEMOGLOBIN 32 pg (27.0-31.0); MEAN CORPUSCULAR HGB CONC 34 g/dl (33.0-37.0); MEAN PLATELET VOLUME 9.7 fl (7.4-10.4); PLATELET COUNT 240 K/mm3 (130-400); WHITE BLOOD COUNT 14.9 K/mm3 (4.8-10.8)
[2016-11-13 06:44] LABS: ADD PATHOLOGY DIFF REVIEW NO
[2016-11-13 06:58] LABS: CREATININE, serum 0.85 mg/dL (0.66-1.25); POTASSIUM 4.8 mmol/L (3.4-5.0)
[2016-11-13 07:22] LABS: BAND 19 % (0-10); NEUTROPHILS 76 % (42.0-75.2); TOTAL CELLS COUNTED 100
[2016-11-13 07:23] LABS: PLATELET ESTIMATE NORMAL (NORMAL)
[2016-11-13 08:28] VITALS: BP 118/73; PULSE 70; TEMP 98.6
[2016-11-13 12:03] VITALS: BP 131/89; PULSE 87; TEMP 98
[2016-11-14] MEDS ORDERED: RT ADVAIR 228 DISKUS IH (17:38)
[2016-11-14] MEDS ORDERED: PREDNISONE20 MG PO (17:38)
[2016-11-14] MEDS ORDERED: LEVAQUIN 5500 MG/TA1 PO (17:38)
[2016-11-14] MEDS ORDERED: AMBIEN 5MG TABLE5 MG PO (17:54)
[2016-12-08] MEDS ORDERED: FLEXERIL 1010 MG/TAB PO (00:17)
[2016-12-08] MEDS ORDERED: ZITHROMAX Z PA250 MG PO (00:17)
[2016-12-24] MEDS ORDERED: MULTI VITAMINS1 TAB PO (11:13)
[2016-12-25] MEDS ORDERED: COUMADIN 5MG5 MG/TAB PO (11:32)
== END 2016-11-13 13:40 | disposition home or self-care (01) | DRG 191 ==
LOC: COL.ER 15:10 → ICU 18:34
PROVIDERS: Emergency Medicine; Internal Medicine; Nurse Practitioner Family
DX: J44.1 Chronic obstructive pulmonary disease with (acute) exacerbation (principal); I50.30 Unspecified diastolic (congestive) heart failure; I48.91 Unspecified atrial fibrillation; R55 Syncope and collapse; K21.9 Gastro-esophageal reflux disease without esophagitis; E11.9 Type 2 diabetes mellitus without complications; I11.0 Hypertensive heart disease with heart failure; I25.10 Atherosclerotic heart disease of native coronary artery without angina pectoris; I25.2 Old myocardial infarction
CPT/HCPCS: 99223-AI; J1650; J1815; J1956; J2405; J2930; J3010; J3480; J7030; J7050

== ENCOUNTER 2016-11-14 14:53 | Emergency (ER) | payer SELFPAY ==
[~2016-11-14] VITALS: Ht 175.3 cm; Wt 122.0 kg
[~2016-11-14 14:53] MED LIST changes: +NITROSTAT0.4 MG/TAB SL
[2016-11-14 14:58] VITALS: TEMP 98.9
[2016-11-14 16:09] LABS: BASO % 0.1 % (0.0-2.0); GRAN # 10.5 (1.4-6.5); GRAN % 86.4 % (42.2-75.2); HEMATOCRIT 39.7 % (42.0-52.0); HEMOGLOBIN 13.3 g/dl (13.5-18.0); LYMPH # 0.8 (1.2-3.4); LYMPH % 6.4 % (20.0-51.0); MEAN CELL VOLUME 95 fl (80.0-100.0); MEAN CORPUSCULAR HEMOGLOBIN 32 pg (27.0-31.0); MEAN CORPUSCULAR HGB CONC 34 g/dl (33.0-37.0); MEAN PLATELET VOLUME 9.6 fl (7.4-10.4); MONO # 0.8 (0.1-0.6); MONO % 6.6 % (1.7-9.3); PLATELET COUNT 235 K/mm3 (130-400); RED BLOOD COUNT 4.16 M/mm3 (4.20-5.60); REDCELL DISTRIBUTION WIDTH-CV 13.6 % (11.5-14.5); WHITE BLOOD COUNT 12.1 K/mm3 (4.8-10.8)
[2016-11-14 16:14] LABS: ADJUSTED CALCIUM 9.2 mg/dL (8.4-10.2); ALANINE AMINOTRANSFERASE 332 U/L (21-72); ALBUMIN 3.8 gm/dL (3.5-5.0); ALKALINE PHOSPHATASE 70 U/L (50-136); ANION GAP 9 mmol/L (7-16); BILIRUBIN,TOTAL 0.5 mg/dL (0.0-1.0); BLOOD UREA NITROGEN 27 mg/dL (9-20); CARBON DIOXIDE 27 mmol/L (22-30); CHLORIDE 100 mmol/L (98-107); CREATININE, serum 0.93 mg/dL (0.66-1.25); GLUCOSE 230 mg/dL (74-106); POTASSIUM 4.4 mmol/L (3.4-5.0); SODIUM 135 mmol/L (137-145); TOTAL PROTEIN 6.4 gm/dL (6.4-8.2)
[2016-11-14 16:26] LABS: B-TYPE NATRIURETIC PEPTIDE 458 pg/mL (0-125)
[2016-11-14 16:27] LABS: TROPONIN-I < 0.012 ng/mL (0.000-0.034)
[2016-11-14 16:34] LABS: PROTHROMBIN TIME 10.9 SECONDS (9.7-12.8)
[2016-11-14] MEDS ORDERED: RT ADVAIR 228 DISKUS IH (17:38)
[2016-11-14] MEDS ORDERED: LEVAQUIN 5500 MG/TA1 PO (17:38)
[2016-11-14] MEDS ORDERED: PREDNISONE20 MG PO (17:38)
[2016-11-14] MEDS ORDERED: AMBIEN 5MG TABLE5 MG PO (17:54)
[2016-11-14 18:03] VITALS: BP 118/89; PULSE 78
[2016-12-08] MEDS ORDERED: FLEXERIL 1010 MG/TAB PO (00:17)
[2016-12-08] MEDS ORDERED: ZITHROMAX Z PA250 MG PO (00:17)
[2016-12-24] MEDS ORDERED: MULTI VITAMINS1 TAB PO (11:13)
[2016-12-25] MEDS ORDERED: COUMADIN 5MG5 MG/TAB PO (11:32)
== END 2016-11-14 18:06 | disposition home or self-care (01) ==
LOC: COL.ER 14:53
PROVIDERS: Emergency Medicine
DX: J44.1 Chronic obstructive pulmonary disease with (acute) exacerbation (principal); J45.909 Unspecified asthma, uncomplicated; K21.9 Gastro-esophageal reflux disease without esophagitis; F17.210 Nicotine dependence, cigarettes, uncomplicated; I48.92 Unspecified atrial flutter; Z87.01 Personal history of pneumonia (recurrent); Z87.09 Personal history of other diseases of the respiratory system; Z79.82 Long term (current) use of aspirin
CPT/HCPCS: J0696; J1885; J2930; J7030

== ENCOUNTER 2016-11-16 18:21 | Emergency (ER) | payer SELFPAY ==
[~2016-11-16] VITALS: Ht 175.3 cm; Wt 120.5 kg
[~2016-11-16 18:21] MED LIST changes: +AMBIEN 5MG TABLE5 MG PO
[2016-11-16 18:25] VITALS: TEMP 97.8
[2016-11-16 19:09] LABS: BASO % 0.1 % (0.0-2.0); EOS # 0.1 (0.0-0.7); GRAN # 3.9 (1.4-6.5); GRAN % 56.6 % (42.2-75.2); HEMATOCRIT 43.2 % (42.0-52.0); HEMOGLOBIN 14.5 g/dl (13.5-18.0); LYMPH # 1.8 (1.2-3.4); LYMPH % 26.3 % (20.0-51.0); MEAN CELL VOLUME 95 fl (80.0-100.0); MEAN CORPUSCULAR HEMOGLOBIN 32 pg (27.0-31.0); MEAN CORPUSCULAR HGB CONC 34 g/dl (33.0-37.0); MEAN PLATELET VOLUME 9.9 fl (7.4-10.4); MONO % 13.6 % (1.7-9.3); PLATELET COUNT 232 K/mm3 (130-400); RED BLOOD COUNT 4.56 M/mm3 (4.20-5.60); REDCELL DISTRIBUTION WIDTH-CV 13.4 % (11.5-14.5)
[2016-11-16 19:10] LABS: ALANINE AMINOTRANSFERASE 400 U/L (21-72); ALBUMIN 3.5 gm/dL (3.5-5.0); ALKALINE PHOSPHATASE 171 U/L (50-136); ANION GAP 9 mmol/L (7-16); BILIRUBIN,TOTAL 0.4 mg/dL (0.0-1.0); BLOOD UREA NITROGEN 22 mg/dL (9-20); CALCIUM 8.6 mg/dL (8.4-10.2); CARBON DIOXIDE 26 mmol/L (22-30); CHLORIDE 98 mmol/L (98-107); CREATININE, serum 0.93 mg/dL (0.66-1.25); GLUCOSE 309 mg/dL (74-106); LIPASE 154 U/L (23-300); POTASSIUM 4.1 mmol/L (3.4-5.0); SODIUM 132 mmol/L (137-145)
[2016-11-16 19:22] LABS: TROPONIN-I < 0.012 ng/mL (0.000-0.034)
[2016-11-16 21:23] VITALS: BP 114/79; PULSE 72
[2016-12-08] MEDS ORDERED: FLEXERIL 1010 MG/TAB PO (00:17)
[2016-12-08] MEDS ORDERED: ZITHROMAX Z PA250 MG PO (00:17)
[2016-12-24] MEDS ORDERED: MULTI VITAMINS1 TAB PO (11:13)
[2016-12-25] MEDS ORDERED: COUMADIN 5MG5 MG/TAB PO (11:32)
== END 2016-11-16 21:24 | disposition home or self-care (01) ==
LOC: COL.ER 18:21
PROVIDERS: Emergency Medicine
DX: J44.1 Chronic obstructive pulmonary disease with (acute) exacerbation (principal); R73.9 Hyperglycemia, unspecified; R07.9 Chest pain, unspecified; I48.91 Unspecified atrial fibrillation; Z87.891 Personal history of nicotine dependence; R79.89 Other specified abnormal findings of blood chemistry
CPT/HCPCS: J1815; J7030; J7512; Q9967

== ENCOUNTER 2016-11-21 16:10 | Emergency (ER) | payer SELFPAY ==
[~2016-11-21] VITALS: Ht 175.3 cm; Wt 102.0 kg
[2016-11-21 16:12] VITALS: TEMP 97.8
[2016-11-21 17:04] LABS: BASO % 0.3 % (0.0-2.0); EOS # 0.2 (0.0-0.7); EOS % 2.8 % (0-4.0); GRAN # 4.4 (1.4-6.5); GRAN % 67.9 % (42.2-75.2); HEMATOCRIT 45.6 % (42.0-52.0); HEMOGLOBIN 15.3 g/dl (13.5-18.0); LYMPH # 1.1 (1.2-3.4); LYMPH % 17.1 % (20.0-51.0); MEAN CELL VOLUME 94 fl (80.0-100.0); MEAN CORPUSCULAR HEMOGLOBIN 32 pg (27.0-31.0); MEAN CORPUSCULAR HGB CONC 34 g/dl (33.0-37.0); MEAN PLATELET VOLUME 9.6 fl (7.4-10.4); MONO # 0.7 (0.1-0.6); MONO % 11.3 % (1.7-9.3); PLATELET COUNT 191 K/mm3 (130-400); RED BLOOD COUNT 4.85 M/mm3 (4.20-5.60); REDCELL DISTRIBUTION WIDTH-CV 13.1 % (11.5-14.5); WHITE BLOOD COUNT 6.4 K/mm3 (4.8-10.8)
[2016-11-21 17:17] LABS: ADJUSTED CALCIUM 8.6 mg/dL (8.4-10.2); ALANINE AMINOTRANSFERASE 558 U/L (21-72); ALBUMIN 3.7 gm/dL (3.5-5.0); ALKALINE PHOSPHATASE 117 U/L (50-136); ANION GAP 6 mmol/L (7-16); BILIRUBIN,TOTAL 0.9 mg/dL (0.0-1.0); BLOOD UREA NITROGEN 14 mg/dL (9-20); CALCIUM 8.4 mg/dL (8.4-10.2); CARBON DIOXIDE 23 mmol/L (22-30); CHLORIDE 105 mmol/L (98-107); CREATININE, serum 0.77 mg/dL (0.66-1.25); GLUCOSE 164 mg/dL (74-106); LIPASE 66 U/L (23-300); POTASSIUM 4.2 mmol/L (3.4-5.0); SODIUM 134 mmol/L (137-145); TOTAL PROTEIN 6.4 gm/dL (6.4-8.2)
[2016-11-21 17:18] LABS: ACETAMINOPHEN < 10 ug/mL (10-30)
[2016-11-21 17:26] LABS: B-TYPE NATRIURETIC PEPTIDE 24 pg/mL (0-125); TROPONIN-I < 0.012 ng/mL (0.000-0.034)
[2016-11-21 18:22] VITALS: BP 137/89; PULSE 73
[2016-11-21 19:45] LABS: FERRITIN 519 ng/mL (18-464)
[2016-11-21 20:11] LABS: TOTAL IRON BINDING CAPACITY 325 ug/dL (261-462)
[2016-12-08] MEDS ORDERED: FLEXERIL 1010 MG/TAB PO (00:17)
[2016-12-08] MEDS ORDERED: ZITHROMAX Z PA250 MG PO (00:17)
[2016-12-24] MEDS ORDERED: MULTI VITAMINS1 TAB PO (11:13)
[2016-12-25] MEDS ORDERED: COUMADIN 5MG5 MG/TAB PO (11:32)
== END 2016-11-21 18:22 | disposition home or self-care (01) ==
LOC: COL.ER 16:10
PROVIDERS: Emergency Medicine
DX: J44.9 Chronic obstructive pulmonary disease, unspecified (principal); R07.9 Chest pain, unspecified; E11.9 Type 2 diabetes mellitus without complications; R74.8 Abnormal levels of other serum enzymes; I10 Essential (primary) hypertension; I48.91 Unspecified atrial fibrillation; Z87.891 Personal history of nicotine dependence; J98.11 Atelectasis; Z79.82 Long term (current) use of aspirin
CPT/HCPCS: J2270; J2405

== ENCOUNTER 2016-11-22 20:37 | Emergency (ER) | payer SELFPAY ==
[~2016-11-22] VITALS: Ht 175.3 cm; Wt 120.5 kg
[2016-11-22 20:44] VITALS: TEMP 97.9
[2016-11-22 21:49] VITALS: BP 112/66; PULSE 79
[2016-11-23] MEDS ORDERED: NAPROXEN 3375 MG/TAB PO (12:30)
[2016-11-23] MEDS ORDERED: LEVAQUIN 750MG750 M1 PO (12:30)
[2016-12-08] MEDS ORDERED: ZITHROMAX Z PA250 MG PO (00:17)
[2016-12-08] MEDS ORDERED: FLEXERIL 1010 MG/TAB PO (00:17)
[2016-12-24] MEDS ORDERED: MULTI VITAMINS1 TAB PO (11:13)
[2016-12-25] MEDS ORDERED: COUMADIN 5MG5 MG/TAB PO (11:32)
== END 2016-11-22 21:51 | disposition home or self-care (01) ==
LOC: COL.ER 20:37
DX: S20.219A Contusion of unspecified front wall of thorax, initial encounter (principal); J44.9 Chronic obstructive pulmonary disease, unspecified; F17.210 Nicotine dependence, cigarettes, uncomplicated; Z95.9 Presence of cardiac and vascular implant and graft, unspecified; Z79.82 Long term (current) use of aspirin; W01.10XA Fall on same level from slipping, tripping and stumbling with subsequent striking against unspecified object, initial encounter; Y92.009 Unspecified place in unspecified non-institutional (private) residence as the place of occurrence of the external cause

== ENCOUNTER 2016-11-23 10:50 | Emergency (ER) | payer SELFPAY ==
[~2016-11-23] VITALS: Ht 175.3 cm; Wt 96.8 kg
[2016-11-23 10:53] VITALS: BP 123/69; PULSE 73; TEMP 97.3
[2016-11-23 11:54] LABS: ANION GAP 7 mmol/L (7-16); BLOOD UREA NITROGEN 13 mg/dL (9-20); CALCIUM 9.3 mg/dL (8.4-10.2); CARBON DIOXIDE 23 mmol/L (22-30); CHLORIDE 105 mmol/L (98-107); CREATININE, serum 0.79 mg/dL (0.66-1.25); GLUCOSE 168 mg/dL (74-106); POTASSIUM 4.5 mmol/L (3.4-5.0); SODIUM 135 mmol/L (137-145)
[2016-11-23 12:08] LABS: TROPONIN-I < 0.012 ng/mL (0.000-0.034)
[2016-11-23] MEDS ORDERED: LEVAQUIN 750MG750 M1 PO (12:30)
[2016-11-23] MEDS ORDERED: NAPROXEN 3375 MG/TAB PO (12:30)
[2016-12-08] MEDS ORDERED: FLEXERIL 1010 MG/TAB PO (00:17)
[2016-12-08] MEDS ORDERED: ZITHROMAX Z PA250 MG PO (00:17)
[2016-12-24] MEDS ORDERED: MULTI VITAMINS1 TAB PO (11:13)
[2016-12-25] MEDS ORDERED: COUMADIN 5MG5 MG/TAB PO (11:32)
== END 2016-11-23 13:38 | disposition home or self-care (01) ==
LOC: COL.ER 10:50
PROVIDERS: Emergency Medicine
DX: R07.89 Other chest pain (principal); J44.9 Chronic obstructive pulmonary disease, unspecified; I50.9 Heart failure, unspecified; Z95.9 Presence of cardiac and vascular implant and graft, unspecified; Z79.82 Long term (current) use of aspirin
CPT/HCPCS: J8540

== ENCOUNTER 2016-11-26 12:33 | Emergency (ER) | payer SELFPAY ==
[~2016-11-26] VITALS: Ht 175.3 cm; Wt 120.5 kg
[~2016-11-26 12:33] MED LIST changes: +LEVAQUIN 750MG750 M1 PO; +NAPROXEN 3375 MG/TAB PO
[2016-11-26 12:39] VITALS: TEMP 98.1
[2016-11-26] MEDS ORDERED: IPRATROPIUM BROM3 M1 IH (14:39)
[2016-11-26 14:50] VITALS: BP 132/64; PULSE 76
[2016-12-08] MEDS ORDERED: FLEXERIL 1010 MG/TAB PO (00:17)
[2016-12-08] MEDS ORDERED: ZITHROMAX Z PA250 MG PO (00:17)
[2016-12-24] MEDS ORDERED: MULTI VITAMINS1 TAB PO (11:13)
[2016-12-25] MEDS ORDERED: COUMADIN 5MG5 MG/TAB PO (11:32)
== END 2016-11-26 14:50 | disposition home or self-care (01) ==
LOC: COL.ER 12:33
DX: J44.1 Chronic obstructive pulmonary disease with (acute) exacerbation (principal); I10 Essential (primary) hypertension; F17.210 Nicotine dependence, cigarettes, uncomplicated; Z95.9 Presence of cardiac and vascular implant and graft, unspecified; Z79.82 Long term (current) use of aspirin

== ENCOUNTER 2016-12-01 14:07 | Emergency (ER) | payer SELFPAY ==
[~2016-12-01] VITALS: Ht 175.3 cm; Wt 118.2 kg
[~2016-12-01 14:07] MED LIST changes: +IPRATROPIUM BROM3 M1 IH
[2016-12-01 14:10] VITALS: BP 140/85; PULSE 83; TEMP 98.3
[2016-12-02] MEDS ORDERED: BACTRIM DS 8001 TAB PO (01:06)
[2016-12-08] MEDS ORDERED: FLEXERIL 1010 MG/TAB PO (00:17)
[2016-12-08] MEDS ORDERED: ZITHROMAX Z PA250 MG PO (00:17)
[2016-12-24] MEDS ORDERED: MULTI VITAMINS1 TAB PO (11:13)
[2016-12-25] MEDS ORDERED: COUMADIN 5MG5 MG/TAB PO (11:32)
== END 2016-12-01 15:28 | disposition left against medical advice (07) ==
LOC: COL.ER 14:07
DX: R07.9 Chest pain, unspecified (principal); Z79.82 Long term (current) use of aspirin

== ENCOUNTER 2016-12-01 21:08 | Emergency (ER) | payer SELFPAY ==
[~2016-12-01] VITALS: Ht 175.3 cm; Wt 118.2 kg
[2016-12-01 21:10] VITALS: BP 131/87; TEMP 97.6
[2016-12-01 22:17] LABS: URINE COLOR Red
[2016-12-01 22:18] LABS: PH 5 (5-8); URINE APPEARANCE Cloudy; URINE BILIRUBIN Negative (NEGATIVE); URINE BLOOD 3+ (NEGATIVE); URINE GLUCOSE Negative (NEGATIVE); URINE KETONE Negative (NEGATIVE); URINE UROBILINOGEN Negative (NEGATIVE)
[2016-12-01 22:32] LABS: SQUAMOUS EPITHELIAL 0-2 /hpf; URINE BACTERIA Occasional /hpf; URINE RBC >50 /hpf
[2016-12-01 22:45] LABS: BASO % 0.4 % (0.0-2.0); EOS # 0.5 (0.0-0.7); EOS % 8.4 % (0-4.0); GRAN # 2.9 (1.4-6.5); HEMOGLOBIN 15.4 g/dl (13.5-18.0); LYMPH # 1.3 (1.2-3.4); LYMPH % 24.3 % (20.0-51.0); MEAN CELL VOLUME 93 fl (80.0-100.0); MEAN CORPUSCULAR HEMOGLOBIN 32 pg (27.0-31.0); MEAN CORPUSCULAR HGB CONC 34 g/dl (33.0-37.0); MEAN PLATELET VOLUME 9.5 fl (7.4-10.4); MONO # 0.7 (0.1-0.6); MONO % 12.7 % (1.7-9.3); PLATELET COUNT 212 K/mm3 (130-400); RED BLOOD COUNT 4.83 M/mm3 (4.20-5.60); REDCELL DISTRIBUTION WIDTH-CV 12.7 % (11.5-14.5); WHITE BLOOD COUNT 5.3 K/mm3 (4.8-10.8)
[2016-12-01 22:58] LABS: CALCIUM 9.7 mg/dL (8.4-10.2); CREATININE, serum 0.85 mg/dL (0.66-1.25); POTASSIUM 4.1 mmol/L (3.4-5.0)
[2016-12-02] MEDS ORDERED: BACTRIM DS 8001 TAB PO (01:06)
[2016-12-02 01:25] VITALS: PULSE 88
[2016-12-08] MEDS ORDERED: ZITHROMAX Z PA250 MG PO (00:17)
[2016-12-08] MEDS ORDERED: FLEXERIL 1010 MG/TAB PO (00:17)
[2016-12-24] MEDS ORDERED: MULTI VITAMINS1 TAB PO (11:13)
[2016-12-25] MEDS ORDERED: COUMADIN 5MG5 MG/TAB PO (11:32)
== END 2016-12-02 01:29 | disposition home or self-care (01) ==
LOC: COL.ER 21:08
PROVIDERS: Physician Assistant
DX: R31.9 Hematuria, unspecified (principal); M54.9 Dorsalgia, unspecified; J45.909 Unspecified asthma, uncomplicated; F17.200 Nicotine dependence, unspecified, uncomplicated; Z79.82 Long term (current) use of aspirin
CPT/HCPCS: J1170; J2405; J7030; Q9967

== ENCOUNTER 2016-12-04 20:42 | Emergency (ER) | payer SELFPAY ==
[~2016-12-04] VITALS: Ht 175.3 cm; Wt 104.5 kg
[2016-12-04 20:43] VITALS: BP 116/50; TEMP 98.3
[2016-12-04 21:57] LABS: PH 5 (5-8); URINE APPEARANCE Cloudy; URINE BACTERIA None Seen /hpf; URINE BILIRUBIN Negative (NEGATIVE); URINE BLOOD 3+ (NEGATIVE); URINE COLOR Amber; URINE GLUCOSE 1+ (NEGATIVE); URINE KETONE Negative (NEGATIVE); URINE RBC >50 /hpf; URINE UROBILINOGEN Negative (NEGATIVE); URINE WBC 20-50 /hpf
[2016-12-04 22:04] LABS: BASO % 0.5 % (0.0-2.0); EOS # 0.5 (0.0-0.7); EOS % 8.5 % (0-4.0); GRAN # 3.2 (1.4-6.5); GRAN % 54.6 % (42.2-75.2); HEMATOCRIT 43.8 % (42.0-52.0); HEMOGLOBIN 14.6 g/dl (13.5-18.0); LYMPH # 1.4 (1.2-3.4); LYMPH % 24.6 % (20.0-51.0); MEAN CELL VOLUME 95 fl (80.0-100.0); MEAN CORPUSCULAR HEMOGLOBIN 32 pg (27.0-31.0); MEAN CORPUSCULAR HGB CONC 33 g/dl (33.0-37.0); MEAN PLATELET VOLUME 9.6 fl (7.4-10.4); MONO # 0.7 (0.1-0.6); MONO % 11.5 % (1.7-9.3); PLATELET COUNT 193 K/mm3 (130-400); REDCELL DISTRIBUTION WIDTH-CV 12.9 % (11.5-14.5); WHITE BLOOD COUNT 5.9 K/mm3 (4.8-10.8)
[2016-12-04 22:14] LABS: CALCIUM 9.3 mg/dL (8.4-10.2); CREATININE, serum 0.94 mg/dL (0.66-1.25); POTASSIUM 4.3 mmol/L (3.4-5.0)
[2016-12-04] MEDS ORDERED: BACTRIM DS 8001 TAB PO (22:19)
[2016-12-04 23:04] VITALS: PULSE 60
[2016-12-08] MEDS ORDERED: ZITHROMAX Z PA250 MG PO (00:17)
[2016-12-08] MEDS ORDERED: FLEXERIL 1010 MG/TAB PO (00:17)
[2016-12-24] MEDS ORDERED: MULTI VITAMINS1 TAB PO (11:13)
[2016-12-25] MEDS ORDERED: COUMADIN 5MG5 MG/TAB PO (11:32)
== END 2016-12-04 23:06 | disposition home or self-care (01) ==
LOC: COL.ER 20:42
PROVIDERS: Emergency Medicine
DX: N39.0 Urinary tract infection, site not specified (principal); E11.9 Type 2 diabetes mellitus without complications; J44.9 Chronic obstructive pulmonary disease, unspecified; G89.29 Other chronic pain; F17.210 Nicotine dependence, cigarettes, uncomplicated; Z79.82 Long term (current) use of aspirin
CPT/HCPCS: J0696

== ENCOUNTER → 2016-12-07 | Emergency (ER) | payer SELFPAY ==
[~2016-12-07] VITALS: Ht 175.3 cm; Wt 102.3 kg
[~2016-12-07] MED LIST changes: +CARDIZEM CD 24240 MG PO; +COUMADIN 5MG5 MG/TAB PO; +FLEXERIL 1010 MG/TAB PO; +GLUCOPHAGE500 MG/TAB PO; +GLUCOSE TEST ST1 DEV MC; +INSULIN SYRING1 EA20 MC; +LANOXIN 0.25M0.25 MG PO; +LOVENOX150 MG/ML SQ; +MULTI VITAMINS1 TAB PO; +NOVOLOGMIX70/30 SQ
[2016-12-07 22:18] VITALS: BP 98/74; PULSE 74; TEMP 98.1
[2016-12-07 23:24] LABS: BASO % 0.2 % (0.0-2.0); EOS # 0.4 (0.0-0.7); EOS % 5.9 % (0-4.0); GRAN # 3.8 (1.4-6.5); GRAN % 59.3 % (42.2-75.2); HEMOGLOBIN 15.7 g/dl (13.5-18.0); LYMPH # 1.6 (1.2-3.4); LYMPH % 24.2 % (20.0-51.0); MEAN CELL VOLUME 93 fl (80.0-100.0); MEAN CORPUSCULAR HEMOGLOBIN 32 pg (27.0-31.0); MEAN CORPUSCULAR HGB CONC 34 g/dl (33.0-37.0); MEAN PLATELET VOLUME 9.5 fl (7.4-10.4); MONO # 0.7 (0.1-0.6); MONO % 10.1 % (1.7-9.3); PLATELET COUNT 219 K/mm3 (130-400); RED BLOOD COUNT 4.97 M/mm3 (4.20-5.60); REDCELL DISTRIBUTION WIDTH-CV 12.4 % (11.5-14.5); WHITE BLOOD COUNT 6.4 K/mm3 (4.8-10.8)
[2016-12-07 23:36] LABS: ALANINE AMINOTRANSFERASE 255 U/L (21-72); ALBUMIN 3.8 gm/dL (3.5-5.0); ALKALINE PHOSPHATASE 93 U/L (50-136); ANION GAP 8 mmol/L (7-16); BILIRUBIN,TOTAL 0.6 mg/dL (0.0-1.0); BLOOD UREA NITROGEN 9 mg/dL (9-20); CALCIUM 8.8 mg/dL (8.4-10.2); CARBON DIOXIDE 24 mmol/L (22-30); CHLORIDE 108 mmol/L (98-107); CREATININE, serum 0.92 mg/dL (0.66-1.25); GLUCOSE 155 mg/dL (74-106); POTASSIUM 3.8 mmol/L (3.4-5.0); SODIUM 140 mmol/L (137-145); TOTAL PROTEIN 6.6 gm/dL (6.4-8.2)
[2016-12-07 23:47] LABS: B-TYPE NATRIURETIC PEPTIDE 1050 pg/mL (0-125)
[2016-12-07 23:49] LABS: TROPONIN-I < 0.012 ng/mL (0.000-0.034)
== END ==
LOC: COL.ER 21:57 → ICU 23:14 → COL.ER 23:14
PROVIDERS: Emergency Medicine
DX: J44.1 Chronic obstructive pulmonary disease with (acute) exacerbation (principal); M54.2 Cervicalgia; I10 Essential (primary) hypertension; E11.9 Type 2 diabetes mellitus without complications; F17.210 Nicotine dependence, cigarettes, uncomplicated; Z79.82 Long term (current) use of aspirin
CPT/HCPCS: J1885

== ENCOUNTER 2016-12-20 13:12 | Inpatient (IN) | payer SELFPAY ==
[2016-12-20] VITALS (188 sets, daily range): BP systolic 95–180; BP diastolic 64–85; PULSE 75–83; TEMP 97.7–99.2; O2SAT 90–100
[~2016-12-20] VITALS: Ht 175.3 cm; Wt 101.6 kg
[~2016-12-20 13:12] MED LIST changes: -CARDIZEM CD 24240 MG PO; -COUMADIN 5MG5 MG/TAB PO; -GLUCOPHAGE500 MG/TAB PO; -GLUCOSE TEST ST1 DEV MC; -INSULIN SYRING1 EA20 MC; -LANOXIN 0.25M0.25 MG PO; -LOVENOX150 MG/ML SQ; -MULTI VITAMINS1 TAB PO; -NOVOLOGMIX70/30 SQ
[2016-12-20 14:33] LABS: BASO % 0.3 % (0.0-2.0); EOS # 0.3 (0.0-0.7); EOS % 4.8 % (0-4.0); GRAN # 3.6 (1.4-6.5); GRAN % 61.2 % (42.2-75.2); HEMATOCRIT 45.3 % (42.0-52.0); HEMOGLOBIN 15.5 g/dl (13.5-18.0); LYMPH # 1.2 (1.2-3.4); LYMPH % 20.4 % (20.0-51.0); MEAN CELL VOLUME 93 fl (80.0-100.0); MEAN CORPUSCULAR HEMOGLOBIN 32 pg (27.0-31.0); MEAN CORPUSCULAR HGB CONC 34 g/dl (33.0-37.0); MEAN PLATELET VOLUME 9.8 fl (7.4-10.4); MONO # 0.8 (0.1-0.6); MONO % 13.1 % (1.7-9.3); PLATELET COUNT 202 K/mm3 (130-400); RED BLOOD COUNT 4.85 M/mm3 (4.20-5.60); REDCELL DISTRIBUTION WIDTH-CV 12.4 % (11.5-14.5); WHITE BLOOD COUNT 5.9 K/mm3 (4.8-10.8)
[2016-12-20 14:44] LABS: ADJUSTED CALCIUM 9.4 mg/dL (8.4-10.2); ALANINE AMINOTRANSFERASE 254 U/L (21-72); ALBUMIN 3.7 gm/dL (3.5-5.0); ALKALINE PHOSPHATASE 94 U/L (50-136); ANION GAP 10 mmol/L (7-16); BILIRUBIN,TOTAL 0.4 mg/dL (0.0-1.0); BLOOD UREA NITROGEN 23 mg/dL (9-20); CALCIUM 9.2 mg/dL (8.4-10.2); CARBON DIOXIDE 22 mmol/L (22-30); CHLORIDE 107 mmol/L (98-107); CREATININE, serum 0.88 mg/dL (0.66-1.25); GLUCOSE 171 mg/dL (74-106); LIPASE 102 U/L (23-300); POTASSIUM 4.4 mmol/L (3.4-5.0); SODIUM 139 mmol/L (137-145); TOTAL PROTEIN 6.4 gm/dL (6.4-8.2)
[2016-12-20 14:47] LABS: PROTHROMBIN TIME 10.7 SECONDS (9.7-12.8)
[2016-12-20 14:49] LABS: PARTIAL THROMBOPLASTIN TIME 34.3 SECONDS (26.0-37.0)
[2016-12-20 14:57] LABS: TROPONIN-I < 0.012 ng/mL (0.000-0.034)
[2016-12-20 22:50] LABS: MAGNESIUM 2.1 mg/dL (1.6-2.3)
[2016-12-20 23:03] LABS: TROPONIN-I < 0.012 ng/mL (0.000-0.034)
[2016-12-21] VITALS (780 sets, daily range): BP systolic 11–131; BP diastolic 68–89; PULSE 58–136; TEMP 97.1–98.6; O2SAT 89–99
[2016-12-21 14:39] LABS: THYROXINE (T4)-TOTAL 7.5 ug/dL (5.5-11.0)
[2016-12-21 14:55] LABS: ADJUSTED CALCIUM 9.2 mg/dL (8.4-10.2); ALBUMIN 3.7 gm/dL (3.5-5.0); BILIRUBIN,TOTAL 0.5 mg/dL (0.0-1.0); CREATININE, serum 0.93 mg/dL (0.66-1.25); POTASSIUM 4.8 mmol/L (3.4-5.0); TOTAL PROTEIN 6.4 gm/dL (6.4-8.2)
[2016-12-22 01:04] VITALS: BP 117/70; PULSE 113; TEMP 98
[2016-12-22 03:28] VITALS: BP 132/80; PULSE 116; TEMP 98
[2016-12-22 04:29] LABS: AMPHETAMINE URINE NEGATIVE; BARBITURATES URINE NEGATIVE; BENZODIAZEPINES URINE NEGATIVE; BUPRENORPHINE URINE NEGATIVE; METHADONE URINE NEGATIVE; OPIATES URINE POSITIVE; OXYCODONE URINE NEGATIVE; PHENCYCLIDINE URINE NEGATIVE; PROPOXYPHENE URINE NEGATIVE; THC CANNABINOIDS URINE NEGATIVE
[2016-12-22 08:15] VITALS: BP 116/65; PULSE 60; TEMP 97.6
[2016-12-22 11:19] VITALS: BP 122/93; PULSE 65; TEMP 98
[2016-12-22 16:34] VITALS: BP 111/77; PULSE 63; TEMP 98.2
[2016-12-22 20:48] VITALS: BP 119/76; PULSE 65; TEMP 98.2
[2016-12-23 00:24] VITALS: BP 117/74; PULSE 102; TEMP 97.7
[2016-12-23 04:34] VITALS: BP 115/67; PULSE 84; TEMP 97.8
[2016-12-23 07:08] LABS: BASO % 0.1 % (0.0-2.0); EOS % 0.1 % (0-4.0); GRAN % 81.8 % (42.2-75.2); HEMATOCRIT 42.1 % (42.0-52.0); HEMOGLOBIN 14.1 g/dl (13.5-18.0); LYMPH # 1.4 (1.2-3.4); LYMPH % 10.5 % (20.0-51.0); MEAN CELL VOLUME 94 fl (80.0-100.0); MEAN CORPUSCULAR HEMOGLOBIN 32 pg (27.0-31.0); MEAN CORPUSCULAR HGB CONC 34 g/dl (33.0-37.0); MEAN PLATELET VOLUME 9.9 fl (7.4-10.4); MONO # 0.9 (0.1-0.6); MONO % 6.8 % (1.7-9.3); PLATELET COUNT 213 K/mm3 (130-400); RED BLOOD COUNT 4.46 M/mm3 (4.20-5.60); REDCELL DISTRIBUTION WIDTH-CV 12.9 % (11.5-14.5); WHITE BLOOD COUNT 13.5 K/mm3 (4.8-10.8)
[2016-12-23 07:19] LABS: INR 1.2 (0.8-3.0); PROTHROMBIN TIME 13.1 SECONDS (9.7-12.8)
[2016-12-23 07:20] LABS: CREATININE, serum 0.83 mg/dL (0.66-1.25); POTASSIUM 4.3 mmol/L (3.4-5.0)
[2016-12-23 08:20] VITALS: BP 122/72; PULSE 91; TEMP 98
[2016-12-23 11:55] VITALS: BP 122/81; PULSE 68; TEMP 98.3
[2016-12-23] MEDS ORDERED: COUMADIN 5MG5 MG/TAB PO (12:11)
[2016-12-23] MEDS ORDERED: LOVENOX150 MG/ML SQ (12:12)
[2016-12-23] MEDS ORDERED: CARDIZEM CD 24240 MG PO (12:13)
[2016-12-23] MEDS ORDERED: LANOXIN 0.25M0.25 MG PO (12:13)
[2016-12-23] MEDS ORDERED: PREDNISONE20 MG PO (12:14)
[2016-12-23] MEDS ORDERED: NOVOLOGMIX70/30 SQ (12:15)
[2016-12-23] MEDS ORDERED: INSULIN SYRING1 EA20 MC (12:16)
[2016-12-23] MEDS ORDERED: RT ADVAIR 228 DISKUS IH (12:17)
[2016-12-23] MEDS ORDERED: GLUCOSE TEST ST1 DEV MC (12:17)
[2016-12-23] MEDS ORDERED: GLUCOPHAGE500 MG/TAB PO (13:28)
[2016-12-24] MEDS ORDERED: MULTI VITAMINS1 TAB PO (11:13)
[2016-12-25] MEDS ORDERED: COUMADIN 5MG5 MG/TAB PO (11:32)
== END 2016-12-23 15:03 | disposition home or self-care (01) | DRG 309 ==
LOC: COL.ER 13:12 → MEDICAL 16:58 → ICU 20:30 → MEDICAL 12-21 16:20
PROVIDERS: Emergency Medicine; Internal Medicine; Internal Medicine Cardiovascular Disease; Physician Assistant
DX: I48.92 Unspecified atrial flutter (principal); J44.1 Chronic obstructive pulmonary disease with (acute) exacerbation; F17.210 Nicotine dependence, cigarettes, uncomplicated; I95.2 Hypotension due to drugs; T46.3X5A Adverse effect of coronary vasodilators, initial encounter; E11.65 Type 2 diabetes mellitus with hyperglycemia; I20.9 Angina pectoris, unspecified; K08.89 Other specified disorders of teeth and supporting structures; R74.8 Abnormal levels of other serum enzymes
CPT/HCPCS: 99223-AI; 99232-AI; 99233-AI; 99239; J1160; J1650; J1815; J1885; J2270; J2930; J7030; J7512

== ENCOUNTER 2016-12-28 06:14 | Emergency (ER) | payer SELFPAY ==
[~2016-12-28] VITALS: Ht 175.3 cm; Wt 109.1 kg
[~2016-12-28 06:14] MED LIST changes: +ASPIRIN 81M81 MG/TA2; +CARDIZEM CD 24240 MG PO; +COUMADIN 5MG5 MG/TAB PO; +FLOVENT DI50 MCG/Act; +GLUCOPHAGE500 MG/TAB PO; +GLUCOSE TEST ST1 DEV MC; +INSULIN SYRING1 EA20 MC; +LANOXIN 0.25M0.25 MG PO; +LOVENOX150 MG/ML SQ; +MONODOX100 PO; +MULTI VITAMINS1 TAB PO; +NORCO 325 MG-7.1 TAB PO; +NORCOELIX PO; +NOVOLOGMIX70/30 SQ; +VITAMIN B PO; +VITAMIN B1225 MCG PO; +[UNRECOGNIZED DRUG - OTHER]
[2016-12-28 06:34] VITALS: BP 119/72; PULSE 64; TEMP 98.4
[2017-01-07] MEDS ORDERED: COUMADIN 5MG5 MG/TAB PO (08:22)
== END 2016-12-28 07:15 | disposition left against medical advice (07) ==
LOC: COL.ER 06:14 → EDBD 06:38 → COL.ER 06:38
DX: R07.9 Chest pain, unspecified (principal)

== ENCOUNTER 2016-12-28 21:25 | Emergency (ER) | payer SELFPAY ==
[~2016-12-28] VITALS: Ht 175.3 cm; Wt 113.6 kg
[2016-12-28 21:31] VITALS: TEMP 98.7
[2016-12-28 21:43] LABS: BASO % 0.5 % (0.0-2.0); EOS # 0.3 (0.0-0.7); EOS % 3.9 % (0-4.0); GRAN # 3.9 (1.4-6.5); GRAN % 59.6 % (42.2-75.2); HEMATOCRIT 47.9 % (42.0-52.0); HEMOGLOBIN 16.3 g/dl (13.5-18.0); LYMPH # 1.5 (1.2-3.4); LYMPH % 23.7 % (20.0-51.0); MEAN CELL VOLUME 93 fl (80.0-100.0); MEAN CORPUSCULAR HEMOGLOBIN 32 pg (27.0-31.0); MEAN CORPUSCULAR HGB CONC 34 g/dl (33.0-37.0); MEAN PLATELET VOLUME 9.9 fl (7.4-10.4); MONO # 0.7 (0.1-0.6); MONO % 11.2 % (1.7-9.3); PLATELET COUNT 217 K/mm3 (130-400); RED BLOOD COUNT 5.16 M/mm3 (4.20-5.60); REDCELL DISTRIBUTION WIDTH-CV 12.9 % (11.5-14.5); WHITE BLOOD COUNT 6.5 K/mm3 (4.8-10.8)
[2016-12-28 21:47] LABS: INR 1.3 (0.8-3.0); PROTHROMBIN TIME 14.9 SECONDS (9.7-12.8)
[2016-12-28 21:51] LABS: ADJUSTED CALCIUM 9.3 mg/dL (8.4-10.2); ALANINE AMINOTRANSFERASE 666 U/L (21-72); ALBUMIN 3.8 gm/dL (3.5-5.0); ALKALINE PHOSPHATASE 111 U/L (50-136); ANION GAP 6 mmol/L (7-16); BILIRUBIN,TOTAL 0.8 mg/dL (0.0-1.0); BLOOD UREA NITROGEN 21 mg/dL (9-20); CALCIUM 9.1 mg/dL (8.4-10.2); CARBON DIOXIDE 27 mmol/L (22-30); CHLORIDE 101 mmol/L (98-107); CREATININE, serum 0.97 mg/dL (0.66-1.25); GLUCOSE 225 mg/dL (74-106); POTASSIUM 5.2 mmol/L (3.4-5.0); SODIUM 134 mmol/L (137-145); TOTAL PROTEIN 6.6 gm/dL (6.4-8.2)
[2016-12-28 22:05] LABS: TROPONIN-I < 0.012 ng/mL (0.000-0.034)
[2016-12-28 23:03] VITALS: BP 103/83; PULSE 70
[2017-01-07] MEDS ORDERED: COUMADIN 5MG5 MG/TAB PO (08:22)
== END 2016-12-28 23:03 | disposition home or self-care (01) ==
LOC: COL.ER 21:25 → EDBD 21:26 → COL.ER 23:03
PROVIDERS: Family Medicine
DX: R55 Syncope and collapse (principal); I48.91 Unspecified atrial fibrillation; J44.9 Chronic obstructive pulmonary disease, unspecified; E11.9 Type 2 diabetes mellitus without complications; I48.92 Unspecified atrial flutter; Z79.4 Long term (current) use of insulin; Z79.84 Long term (current) use of oral hypoglycemic drugs; Z79.01 Long term (current) use of anticoagulants; Z79.82 Long term (current) use of aspirin

== ENCOUNTER 2017-01-04 10:57 | Emergency (ER) | payer SELFPAY ==
[~2017-01-04] VITALS: Ht 175.3 cm; Wt 111.4 kg
[2017-01-04 10:59] VITALS: TEMP 97.5
[2017-01-04 11:50] LABS: BASO % 0.1 % (0.0-2.0); EOS # 0.2 (0.0-0.7); EOS % 3.3 % (0-4.0); GRAN # 4.8 (1.4-6.5); GRAN % 66.4 % (42.2-75.2); HEMATOCRIT 46.4 % (42.0-52.0); HEMOGLOBIN 15.7 g/dl (13.5-18.0); LYMPH # 1.4 (1.2-3.4); LYMPH % 19.8 % (20.0-51.0); MEAN CELL VOLUME 93 fl (80.0-100.0); MEAN CORPUSCULAR HEMOGLOBIN 32 pg (27.0-31.0); MEAN CORPUSCULAR HGB CONC 34 g/dl (33.0-37.0); MEAN PLATELET VOLUME 9.8 fl (7.4-10.4); MONO # 0.7 (0.1-0.6); MONO % 10.1 % (1.7-9.3); PLATELET COUNT 244 K/mm3 (130-400); RED BLOOD COUNT 4.99 M/mm3 (4.20-5.60); REDCELL DISTRIBUTION WIDTH-CV 12.9 % (11.5-14.5); WHITE BLOOD COUNT 7.2 K/mm3 (4.8-10.8)
[2017-01-04 12:01] LABS: PROTHROMBIN TIME 22.6 SECONDS (9.7-12.8)
[2017-01-04 12:03] LABS: PARTIAL THROMBOPLASTIN TIME 59.1 SECONDS (26.0-37.0)
[2017-01-04 12:07] LABS: ADJUSTED CALCIUM 9.2 mg/dL (8.4-10.2); ALANINE AMINOTRANSFERASE 355 U/L (21-72); ALBUMIN 3.9 gm/dL (3.5-5.0); ALKALINE PHOSPHATASE 100 U/L (50-136); ANION GAP 13 mmol/L (7-16); BILIRUBIN,TOTAL 0.4 mg/dL (0.0-1.0); BLOOD UREA NITROGEN 13 mg/dL (9-20); CALCIUM 9.1 mg/dL (8.4-10.2); CARBON DIOXIDE 21 mmol/L (22-30); CHLORIDE 105 mmol/L (98-107); CREATININE, serum 0.84 mg/dL (0.66-1.25); GLUCOSE 138 mg/dL (74-106); LIPASE 154 U/L (23-300); POTASSIUM 4.2 mmol/L (3.4-5.0); SODIUM 138 mmol/L (137-145); TOTAL PROTEIN 6.8 gm/dL (6.4-8.2)
[2017-01-04 12:27] LABS: TROPONIN-I < 0.012 ng/mL (0.000-0.034)
[2017-01-04 15:42] VITALS: BP 114/71; PULSE 66
[2017-01-07] MEDS ORDERED: COUMADIN 5MG5 MG/TAB PO (08:22)
== END 2017-01-04 15:52 | disposition home or self-care (01) ==
LOC: COL.ER 10:57 → EDBD 11:03 → COL.ER 11:03
PROVIDERS: Physician Assistant
DX: R07.89 Other chest pain (principal); I48.91 Unspecified atrial fibrillation; I48.92 Unspecified atrial flutter; J44.9 Chronic obstructive pulmonary disease, unspecified; Z79.01 Long term (current) use of anticoagulants; Z79.82 Long term (current) use of aspirin; Z79.4 Long term (current) use of insulin; Z98.890 Other specified postprocedural states
CPT/HCPCS: J2270

== ENCOUNTER 2017-01-07 09:00 | Outpatient (RCR) | payer SELFPAY ==
[2016-12-24 11:15] VITALS: BP 117/49; PULSE 41; TEMP 97.6
[2016-12-25 10:52] VITALS: BP 117/80; PULSE 73; TEMP 97.7
[2016-12-25 11:14] LABS: PROTHROMBIN TIME 11.3 SECONDS (9.7-12.8)
[2016-12-26 12:58] VITALS: BP 107/70; PULSE 71; TEMP 97.4
[2016-12-27 13:17] VITALS: BP 114/65; PULSE 52; TEMP 97.4
[2016-12-28 12:42] VITALS: BP 118/85; PULSE 73; TEMP 97.9
[2016-12-28 13:34] LABS: INR 1.3 (0.8-3.0); PROTHROMBIN TIME 15.1 SECONDS (9.7-12.8)
[2016-12-29 13:10] VITALS: BP 105/76; PULSE 66; TEMP 97.9
[2016-12-30 08:36] VITALS: BP 138/102; PULSE 74; TEMP 98.2
[2016-12-31 08:30] VITALS: BP 128/101; PULSE 69; TEMP 98.1
[2017-01-01 09:30] VITALS: BP 101/62; PULSE 79; TEMP 98.3
[2017-01-03 09:43] VITALS: BP 117/82; PULSE 87; TEMP 98.5
[2017-01-03 09:59] LABS: INR 1.7 (0.8-3.0); PROTHROMBIN TIME 18.7 SECONDS (9.7-12.8)
[2017-01-04 07:58] VITALS: BP 121/72; PULSE 82; TEMP 98.5
[2017-01-04 08:34] LABS: INR 1.8 (0.8-3.0); PROTHROMBIN TIME 20.8 SECONDS (9.7-12.8)
[2017-01-04 09:06] LABS: THYROID STIMULATING HORMONE 4.82 uIU/mL (0.465-4.680)
[2017-01-05 08:47] VITALS: BP 122/77; PULSE 74; TEMP 98.4
[~2017-01-07] VITALS: Ht 175.3 cm; Wt 103.9 kg
[2017-01-07 08:23] VITALS: BP 126/82; PULSE 72; TEMP 97.7
[2017-01-07 09:00] LABS: INR 2.4 (0.8-3.0); PROTHROMBIN TIME 27.3 SECONDS (9.7-12.8)
== END 2017-01-07 10:42 | disposition home or self-care (01) ==
LOC: EUO 09:00
PROVIDERS: Family Medicine
DX: I48.91 Unspecified atrial fibrillation (principal); Z79.01 Long term (current) use of anticoagulants
CPT/HCPCS: J1650